=== PATIENT | female | born 1970 | race Caucasian/White ===

== ENCOUNTER 2016-12-05 14:55 | Emergency (ER) | payer BC ==
[2016-12-05 16:27] VITALS: BP 111/60
--- NOTE | 2016-12-05 17:05 | UC ---
Complaint Female HPI - HPI Summary HPI Summary: sudden onset stabbing right flank pain last night while sitting on cough. Doubled her over and she felt like she might vomit. Urinary frequency at that time. Pain was severe for an hour or so, then seemed to move down toward bladder. Today she feels sharp pains in RLQ area, worse with certain movements. No nausea or vomiting. NO fever. No dysuria or inc frequency today, but urine did look cloudy. - History Of Current Complaint Chief Complaint: UCGU Stated Complaint: URINARY COMPLAINT Time Seen by Provider: 12/05/16 16:51 Hx Obtained From: Patient Hx Last Menstrual Period: 11/16/16 Onset/Duration: Sudden Onset, Lasting Hours - 18 Timing: Constant Severity Initially: Severe Severity Currently: Mild Character: Sharp, Colicy Aggravating Factor(s): Movement, Urination Alleviating Factor(s): Nothing Associated Signs And Symptoms: Positive: Nausea. Negative: Fever, Back Pain, Vaginal Bleeding/Discharge, Vaginal Discharge, Vomiting(# Of Episodes =), Genital Swelling, Genital Blisters - Risk Factors Ectopic Risk Factor: Negative Ovarian Torsion Risk Factor: Negative - Allergies/Home Medications Allergies/Adverse Reactions: Allergies Allergy/AdvReac Type Severity Reaction Status Date / Time Latex Allergy Intermediate Rash Verified 08/29/16 09:40 Penicillins Allergy Intermediate Hives Verified 12/05/16 16:22 Cephalexin [From Keflex] AdvReac Intermediate GI Upset Verified 12/05/16 16:22 Prochlorperazine AdvReac Intermediate RLS Verified 12/05/16 16:22 [From Compazine] Home Medications: Home Medications Ibuprofen TAB* [Advil TAB*] 400 mg PO Q6H PRN 12/05/16 [History Confirmed ] PMH/Surg Hx/FS Hx/Imm Hx Endocrine History Of: Denies: Diabetes, Thyroid Disease Cardiovascular History Of: Reports: Cardiac Disorders - mitral valve regurgitation Denies: Hypertension Respiratory History Of: Reports: Asthma Denies: COPD GI/ History Of: Reports: Ulcer - Age 11 - Surgical History Surgical History: Yes Surgery Procedure, Year, and Place: , 2008 - Family History Known Family History: Positive: Hypertension - Social History Occupation: Employed Full-time Lives: With Family Alcohol Use: Occasionally Substance Use Type: None Smoking Status (MU): Never Smoked Tobacco - Immunization History Most Recent Influenza Vaccination: Not the 2016/2016 Season Most Recent Tetanus Shot: WITHIN 5 YEARS Review of Systems Constitutional: Negative Skin: Negative Eyes: Negative ENT: Negative Respiratory: Negative Cardiovascular: Negative Gastrointestinal: Negative Genitourinary: Frequency - last night when pain was severe, Urgency Motor: Negative Neurovascular: Negative Musculoskeletal: Other: - pain right flank area last night, now rlq Neurological: Negative Psychological: Negative All Other Systems Reviewed And Are Negative: Yes Physical Exam Triage Information Reviewed: Yes Appearance: Well-Appearing, No Pain Distress, Well-Nourished Vital Signs: Initial Vital Signs Temp 99.8 F 12/05/16 16:13 Pulse 89 12/05/16 16:13 Resp 16 12/05/16 16:13 BP 111/60 12/05/16 16:13 Pulse Ox 100 12/05/16 16:13 Vital Signs Reviewed: Yes Eye Exam: Normal Neck exam: Normal Respiratory Exam: Normal Cardiovascular Exam: Normal Abdomen Description: Positive: No Organomegaly, Soft, CVA Tenderness (R) - mild , Other: - one area in RLQ moderately tender to deep palpation. No rebound or guarding. Negative: CVA Tenderness (L), Distended, Guarding Musculoskeletal Exam: Normal Neurological Exam: Normal Psychological Exam: Normal Skin Exam: Normal Diagnostics - Laboratory Diagnostic Studies Completed/Ordered: U/A dip 1+ blood, otherwise unremarkable. CT: acute appendicitis Complaint Female Dx - Course Course Of Treatment: d/w [place] [facility] physician, she drove herself there for further eval and treatment - Differential Dx/Diagnosis Differential Diagnosis/HQI/PQRI: Renal Colic, Ureteral Stone, Urinary Tract Infection Provider Diagnoses: appendicitis Discharge - Discharge Plan Condition: Stable Disposition: AGAINST MEDICAL ADVICE Referrals: Wilfred Redd MD [Primary Care Provider] -
--- NOTE | 2016-12-05 18:24 | RAD ---
INDICATION: RIGHT flank . Pressure radiating to the RIGHT groin. Urinary frequency and urgency. RIGHT flank . Pressure radiating to the RIGHT groin. Urinary frequency and urgency. COMPARISON: No relevant prior exams available on the [facility]. TECHNIQUE: Multidetector CT images were obtained from the lung bases to the ischial tuberosities. Evaluation of the viscera is limited without IV contrast. Multiplanar reformation. REPORT: Unremarkable visualized inferior thorax. The liver, gallbladder, pancreas, and spleen are unremarkable. Negative for CT abnormality of the upper GI or small bowel. Retrocecal appendix extends cephalad anterior to the RIGHT iliacus muscle and is significantly inflamed measuring up to 1.2 cm diameter with moderate periappendiceal inflammatory stranding. No extra enteric gas or periappendiceal abscess. No CT abnormality of the colon. Trace free fluid in the RIGHT paracolic gutter. Negative for free air. Normal adrenal glands. Negative for urolithiasis or hydronephrosis. Unremarkable urinary bladder. IUD in place in the uterus. Unremarkable adnexal regions. Negative for lymphadenopathy. Normal diameter abdominal aorta and iliac arteries. Physiologic distention of the IVC. Negative for suspicious osseous lesions. IMPRESSION: Acute appendicitis. Negative for periappendiceal abscess.
== END 2016-12-05 18:48 | disposition left against medical advice (07) ==
LOC: UCCORT 14:55
DX: K35.80 Unspecified acute appendicitis (principal); Z88.1 Allergy status to other antibiotic agents; Z88.0 Allergy status to penicillin; Z88.2 Allergy status to sulfonamides
CPT/HCPCS: 74176; 99213; G0463

== ENCOUNTER 2017-12-15 14:52 | Emergency (ER) | payer BC ==
[2017-12-15 15:17] VITALS: BP 109/70
--- NOTE | 2017-12-15 15:50 | UC ---
FLU HPI - HPI Summary HPI Summary: 2 DAYS OF NASAL IRRITATION AND SNEEZING. TODAY DEVELOPED "FOGGY HEAD", CHILLS, FATIGUE AND SUBJECTIVE FEVER. FEELS BETTER IN THE FRESH AIR. CALLED PCP WHO RECOMMENDED SHE COME HERE FOR FLU TESTING. - History of Current Complaint Chief Complaint: UCGeneralIllness Stated Complaint: FLU LIKE SYMPTOMS Time Seen by Provider: 12/15/17 15:37 Hx Obtained From: Patient Hx Last Menstrual Period: 11/16/16 Onset/Duration: Gradual Onset, Lasting Days, Still Present Severity Currently: Moderate Severity Initially: Moderate Pain Intensity: 0 Pain Scale Used: 0-10 Numeric Associated Signs & Symptoms: Positive: Fever, Myalgia, Nasal Congestion - Allergy/Home Medications Allergies/Adverse Reactions: Allergies Allergy/AdvReac Type Severity Reaction Status Date / Time Latex Allergy Intermediate Rash Verified 12/15/17 15:09 Penicillins Allergy Intermediate Hives Verified 12/15/17 15:09 Cephalexin [From Keflex] AdvReac Intermediate GI Upset Verified 12/15/17 15:09 Prochlorperazine AdvReac Intermediate RLS Verified 12/15/17 15:09 [From Compazine] PMH/Surg Hx/FS Hx/Imm Hx Other Cardiovascular History: MITRAL VALVE REGURGITATION Respiratory History: Asthma GI/ History: Ulcer - Surgical History Surgical History: Yes Surgery Procedure, Year, and Place: , 2007. Appendectomy 2016 - Family History Known Family History: Positive: Hypertension - Social History Alcohol Use: Occasionally Substance Use Type: None Smoking Status (MU): Never Smoked Tobacco - Immunization History Most Recent Influenza Vaccination: Not the 2016/2016 Season Most Recent Tetanus Shot: WITHIN 5 YEARS Review of Systems Constitutional: Fever, Chills, Fatigue ENT: Nasal Discharge Cardiovascular: Negative Gastrointestinal: Nausea Musculoskeletal: Myalgia All Other Systems Reviewed And Are Negative: Yes Physical Exam Triage Information Reviewed: Yes Appearance: Well-Appearing, No Pain Distress, Well-Nourished Vital Signs: Initial Vital Signs Temp 98.5 F 12/15/17 15:10 Pulse 85 12/15/17 15:10 Resp 16 12/15/17 15:10 BP 109/70 12/15/17 15:10 Pulse Ox 99 12/15/17 15:10 Vital Signs Reviewed: Yes Eyes: Positive: Conjunctiva Clear ENT: Positive: Hearing grossly normal, Pharynx normal, TMs normal Neck: Positive: Supple, Nontender, No Lymphadenopathy Respiratory Exam: Normal Cardiovascular Exam: Normal Abdomen Description: Positive: Soft Musculoskeletal: Positive: No Edema Neurological: Positive: Alert Psychological: Positive: Age Appropriate Behavior Skin: Negative: rashes Diagnostics - Laboratory Diagnostic Studies Completed/Ordered: FLU SWAB NEGATIVE Flu Course/Dx - Differential Dx/Diagnosis Provider Diagnoses: ACUTE VIRAL SYNDROME Discharge - Discharge Plan Condition: Stable Disposition: HOME Patient Education Materials: Viral Syndrome (ED) Referrals: Wilfred Redd MD [Primary Care Provider] - If Needed Additional Instructions: FLU SWAB NEGATIVE. YOUR SYMPTOMS ARE LIKELY VIRALLY MEDIATED AND SHOULD RESOLVE ON THEIR OWN WITH TIME. REST, HYDRATE, OTC MEDS NEEDED. SEEK FOLLOW-UP IF YOU ARE NOT IMPROVING OVER THE NEXT 1-2 WEEKS.
== END 2017-12-15 16:43 | disposition home or self-care (01) ==
LOC: UCCORT 14:52
DX: B34.9 Viral infection, unspecified (principal); I34.0 Nonrheumatic mitral (valve) insufficiency; J45.909 Unspecified asthma, uncomplicated; Z88.0 Allergy status to penicillin
CPT/HCPCS: 87502; 99211; G0463

== ENCOUNTER 2018-01-03 08:29 | Emergency (ER) | payer BC ==
[2018-01-03 09:47] VITALS: BP 109/70
--- NOTE | 2018-01-03 10:25 | RAD ---
INDICATION: Chest and trunk pain, possible pneumonia. COMPARISON: Comparison is made with a prior study from August 22, 2015. TECHNIQUE: Dual-energy PA and lateral views of the chest were obtained. FINDINGS: The heart is within normal limits in size. Mediastinal and hilar contours appear within normal limits. The lungs are clear. No pleural effusion is present. IMPRESSION: NO EVIDENCE FOR ACTIVE CARDIOPULMONARY DISEASE.
--- NOTE | 2018-01-03 10:31 | UC ---
Cardiac HPI - HPI Summary HPI Summary: Right lateral chest pain toward the right axilla that worsens with deep breaths. She has factor V leiden carrier status but has never had any complictions from it. No personal or FH of blood clots. She denies sob, calf pain or swelling. No cough or fever. - History of Current Complaint Chief Complaint: UCBackPain Stated Complaint: RIGHT UPPER BACK PAIN Time Seen by Provider: 01/03/18 09:48 Hx Last Menstrual Period: 01/01/18 Pain Intensity: 5 - Risk Factors Pulmonary Embolism Risk Factors: Negative Cardiac Risk Factors: Negative Atrial Fibrillation: Negative - Allergy/Home Medications Allergies/Adverse Reactions: Allergies Allergy/AdvReac Type Severity Reaction Status Date / Time cephalexin [From Keflex] Allergy Hives Verified 01/03/18 09:40 latex Allergy Rash Verified 01/03/18 09:40 mold Allergy Anaphylatic Verified 01/03/18 09:40 Shock mushroom Allergy Anaphylatic Verified 01/03/18 09:40 Shock Penicillins Allergy Hives Verified 01/03/18 09:40 prochlorperazine Allergy RLS Verified 01/03/18 09:40 [From Compazine] PMH/Surg Hx/FS Hx/Imm Hx Previously Healthy: Yes - Surgical History Surgical History: Yes Surgery Procedure, Year, and Place: , 2007. Appendectomy 2016 - Family History Known Family History: Positive: Hypertension - Social History Alcohol Use: Occasionally Substance Use Type: None Smoking Status (MU): Never Smoked Tobacco - Immunization History Most Recent Influenza Vaccination: Not the 2016/2016 Season Most Recent Tetanus Shot: WITHIN 5 YEARS Review of Systems Cardiovascular: Chest Pain Genitourinary: Negative - NO urinary symptoms. All Other Systems Reviewed And Are Negative: Yes Physical Exam Triage Information Reviewed: Yes Appearance: Well-Appearing, No Pain Distress, Well-Nourished Vital Signs: Initial Vital Signs Temp 97.8 F 01/03/18 09:42 Pulse 75 01/03/18 09:42 Resp 16 01/03/18 09:42 BP 109/70 01/03/18 09:42 Pulse Ox 100 01/03/18 09:42 Vital Signs Reviewed: Yes Eyes: Positive: Conjunctiva Clear ENT: Positive: Pharynx normal, TMs normal, Uvula midline. Negative: Tonsillar swelling, Tonsillar exudate, Trismus, Muffled voice, Hoarse voice, Dental tenderness, Sinus tenderness Neck: Positive: Supple, Nontender, No Lymphadenopathy Respiratory Exam: Other - right lateral chest tendeness in the are of the inferior lateral scapula. Respiratory: Positive: Lungs clear, Normal breath sounds, No respiratory distress, No accessory muscle use. Negative: Respiratory distress, Decreased breath sounds, Accessory muscle use, Crackles, Rhonchi, Stridor, Wheezing Cardiovascular: Positive: RRR, No Murmur, Pulses Normal Abdomen Description: Negative: Distended, Guarding Musculoskeletal: Positive: ROM Intact, No Edema, Other: - Neg homans idris. NO calf tenderness. Neurological: Positive: Alert, Muscle Tone Normal. Negative: Fatigued Psychological: Positive: Age Appropriate Behavior Skin: Negative: rashes Diagnostics - Radiology No standard instances Xray Interpretation: No Acute Changes Radiology Interpretation Completed By: ED Physician - Assessment/Plan Course Of Treatment: Mild right pleuritic scapular pain without any worrisome features for DVT or PE. She aggrees to go to ED for any worsening or new symptoms. No tachycardia or sob. - Clinical Impression Provider Diagnoses: right chest wall pain. Discharge - Discharge Plan Condition: Good Disposition: HOME Patient Education Materials: Chest Wall Pain (ED) Referrals: Wilfred Redd MD [Primary Care Provider] - Additional Instructions: Go to ED for sob or worsening pain.
== END 2018-01-03 10:33 | disposition home or self-care (01) ==
LOC: UCCORT 08:29
DX: R07.89 Other chest pain (principal)
CPT/HCPCS: 71046; 99211; G0463

== ENCOUNTER 2018-07-19 14:49 | Emergency (ER) | payer BC, OTHER ==
[2018-07-19 15:08] VITALS: BP 108/67
--- NOTE | 2018-07-19 15:39 | UC ---
Throat Pain/Nasal Lio HPI - HPI Summary HPI Summary: one week hx of malaise, with initial fever. Has persistent headache and facial sinus pain, with purulent drainage with nasal rinses. Using ibuprofen daily. No vertigo, feels light-headed. Concerned because of upcoming camping trip, and personal hx of asthma triggered by URI's and sinus infections. Stopped antihistamines. 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 - History of Current Complaint Chief Complaint: UCGeneralIllness Stated Complaint: SINUSES,HEADACHE Time Seen by Provider: 07/19/18 15:26 Hx Obtained From: Patient Hx Last Menstrual Period: 07/16/18 Onset/Duration: Gradual Onset, Lasting Days - 7 Severity: Moderate Pain Intensity: 5 Cough: None Associated Signs & Symptoms: Positive: Sinus Discomfort, Nasal Discharge, Fever Related History: Seasonal Allergies - Allergies/Home Medications Allergies/Adverse Reactions: Allergies Allergy/AdvReac Type Severity Reaction Status Date / Time cephalexin [From Keflex] Allergy Hives Verified 07/19/18 14:59 latex Allergy Rash Verified 07/19/18 14:59 mold Allergy Anaphylatic Verified 07/19/18 14:59 Shock mushroom Allergy Anaphylatic Verified 07/19/18 14:59 Shock Penicillins Allergy Hives Verified 07/19/18 14:59 prochlorperazine Allergy RLS Verified 07/19/18 14:59 [From Compazine] PMH/Surg Hx/FS Hx/Imm Hx Cardiovascular History: Other - hx of venous stasis with past treatment of varicose veins. Other Cardiovascular History: hx of venous insufficiency and past hx of dependency edema Respiratory History: Asthma - Surgical History Surgical History: Yes Surgery Procedure, Year, and Place: , 2007. Appendectomy 2017 - Family History Known Family History: Positive: Cardiac Disease, Hypertension, Diabetes - Social History Occupation: Employed Full-time Alcohol Use: Occasionally Substance Use Type: None Smoking Status (MU): Never Smoked Tobacco - Immunization History Most Recent Influenza Vaccination: Not the 2016/2017 Season Most Recent Tetanus Shot: UTD Review of Systems Constitutional: Fever, Fatigue Skin: Negative Eyes: Negative ENT: Nasal Discharge, Sinus Congestion Respiratory: Other - history of asthma, with exacerbations about once yearly. Uses prednisone about once yearly, has been admitted in the past for asthma. Cardiovascular: Negative Gastrointestinal: Negative Genitourinary: Negative Motor: Negative Neurovascular: Negative Musculoskeletal: Negative Neurological: Headache Psychological: Anxious Is Patient Immunocompromised?: No All Other Systems Reviewed And Are Negative: Yes Physical Exam Triage Information Reviewed: Yes Appearance: Ill-Appearing - looks mildly unwell Vital Signs: Initial Vital Signs Temp 98.3 F 07/19/18 15:00 Pulse 79 07/19/18 15:00 Resp 16 07/19/18 15:00 BP 108/67 07/19/18 15:00 Pulse Ox 100 07/19/18 15:00 Eye Exam: Normal ENT: Positive: Pharynx normal, TMs normal, Sinus tenderness - maxillary Dental Exam: Normal Neck: Positive: Supple, Nontender, No Lymphadenopathy Respiratory: Positive: Lungs clear, Normal breath sounds Cardiovascular: Positive: RRR, No Murmur Abdomen Description: Positive: Nontender, No Organomegaly, Soft Musculoskeletal: Positive: Edema @ - bilateral feet, 1+ pitting of the feet. Skin Exam: Other - a number of bites on her lower limbs. Throat Pain/Nasal Course/Dx - Course Course Of Treatment: antihistamines. Will give antibiotic and steroid to keep on hold while camping. - Differential Dx/Diagnosis Differential Diagnosis/HQI/PQRI: Pharyngitis, Sinusitis, URI Provider Diagnoses: bilateral maxillary sinusitis. Discharge - Sign-Out/Discharge Documenting (check all that apply): Patient Departure All imaging exams completed and their final reports reviewed: No Studies - Discharge Plan Condition: Stable Disposition: HOME Prescriptions: Fluconazole [Fluconazole 150 mg tab] 150 mg PO ONCE #1 tab predniSONE [Prednisone 20 MG TAB] 2 tab PO DAILY #10 tablet Sulfamethox/Trimethoprim DS* [Bactrim DS 800/160 TAB*] 1 tab PO BID #14 tab Patient Education Materials: Sinusitis (ED) Referrals: Wilfred Redd MD [Primary Care Provider] - Additional Instructions: At this time, continue use of oral antihistamine and measures to control congestion and allergies. Because of upcoming travel, you have a course of bactrim to begin if you have persistent sinus pressure, fever, or develop cough. It is reasonable to wait a day or 2 before starting this. You have a reserve course of prednisone in case of asthma exacerbation. You have a reserve dose of fluconazole in case of yeast vaginitis. - Billing Disposition and Condition Condition: STABLE Disposition: Home
== END 2018-07-19 16:07 | disposition home or self-care (01) ==
LOC: UCCORT 14:49
DX: J32.0 Chronic maxillary sinusitis (principal); Z88.0 Allergy status to penicillin; Z88.1 Allergy status to other antibiotic agents; Z88.8 Allergy status to other drugs, medicaments and biological substances
CPT/HCPCS: 99212; G0463

== ENCOUNTER 2019-01-25 11:48 | Emergency (ER) | payer OTHER ==
--- OUTSIDE RECORDS SUMMARY | 2019-01-25 11:59 | XMS REPORT | Continuity of Care Document ---
:1970 External Reference #:[id number] Author Name Melissa Cunningham M.D. Address [address] [place] [address] Care Team Providers Name Role Phone Adi Redd MD Care Team Information Supervisor Rose Grading Unavailable Payers Date Identification Numbers Payment Provider Subscriber Effective: 2018 Policy Number: [id number] Abdulaziz Hanley PayID: [id number] [address] [place] [address] Expires: 2018 Policy Number: [id number] [place] Plan Claims Ilsa Hanley PayID: [id number] [address] [place] [address] Advance Directives Description No Information Available Problems Date Description Provider Status Onset: 04/09/2013 Mitral valve disorder Adi Redd MD Active Onset: 04/09/2013 Conductive hearing loss of combined sites Adi Redd MD Active Onset: 04/09/2013 Extrinsic asthma without status asthmaticus Adi Redd MD Active Onset: 01/14/2014 Disorder of function of stomach Adi Redd MD Active Onset: 02/24/2014 Acute sinusitis Adi Redd MD Active Onset: 05/02/2016 Conductive hearing loss, bilateral Adi Redd MD Active Family History Date Family Member(s) Observation Comments General Dementia General Diabetes Mellitus, II General Cerebrovascular Accident (CVA) General Hypertension General Ovarian Cancer General Deep Vein Thrombosis Father Multiple Sclerosis (MS) Father Knee replacement Father Factor V carrier Mother Asthma Mother Lupus Mother Hypertension Mother Diabetes Mellitus, II Mother Breast Carcinoma Social History Type Date Description Comments Sex Unknown Marital Status Has been 2 times Lives With Spouse Lives With Children Pets 1 cat Pets 1 dog Hand Dominance Right-Handed ETOH Use Occasionally consumes alcohol Tobacco Use Start: Unknown Patient has never smoked Smoking Status Reviewed: 05/25/17 Patient has never smoked Allergies, Adverse Reactions, Alerts Date Description Reaction Status Severity Comments 04/09/2013 Penicillin Active 04/09/2013 Keflex Active Medications Medication Date Status Form Strength Qnty SIG Indications Ordering Provider Azithromycin 12/31 Active Tablets 250mg 6tabs 2 by J20.9 mouth Octavio, today, 1 M.D. by mouth day 2 thru 5 Prednisone 12/31 Active Tablets 5mg 30tab 1 by 0.9 s mouth Octavio, twice a M.D. day for one week and then 5 mg every day x 1 week Work Note 12/31 Active The above J20.9 is Octavio, excused M.D. from work 01/01/2019 due to illness Diflucan 01/11 Active Tablets 100mg 3tabs 1 every day Liz Cunningham Proair HFA 02/10 Active Aerosol 108(90Bas 8.500 2 puffs 4 e) gm x daily Octavio, mcg/Act M.DNeto Nasonex 02/24 Active Suspension 50mcg/Act 17gm 1 spray q nostril MD Ivania daily Albuterol Sulfate 04/09 Active Nebulizer (2.5mg/3M 60uni right ear L) 0.083% ts robby Redd MD times a day . Azithromycin 01/11 Hx Tablets 250mg 6tabs 2 by J01.90 john Redd MD - today, 1 12/31 by mouth day 2 thru 5 Out Of Work 01/11 Hx date to Dae return MD Ivania - will be 12/3101/13/18 Fluconazole 06/21 Hx Tablets 150mg 2tabs 1 by mouth Octavio, - every day M.D. 01/11 Ciprodex 06/06 Hx Suspension 0.3-0.1% 7.500 2 gtts as H60.319 Rigoberto Sheryl /2016 ml Quid X 7D MD Octavio - 06/15 Doxycycline 06/06 Hx Capsules 100mg 14cap 1 by J20.9 Rigoberto FNeto Hyclate /2016 s mouth MD Octavio - twice a Coditussin ac 06/06 Hx Liquid 200-10mg/ 473ml 10 ml po H60.319 Rigoberto Saucedo 5ML qhs MD Octavio - 06/15 Benzonatate 06/05 Hx Capsules 200mg 30cap take 1 s capsule Octavio, - by mouth M.D. 06/15 twice a day if needed for cough Azithromycin 05/25 Hx Tablets 250mg 6tabs 2 by J01.90 Melissa mouth Octavio, - today, 1 M.D. 06/06 by mouth day 2 thru 5 Fluconazole 05/25 Hx Tablets 150mg 2tabs 1 by [email or web address] Adi mouth MD Ivania - every day 01/11 Azithromycin 03/01 Hx Tablets 250mg 6tabs 2 by J20.9 Melissa mouth Octavio, - today, 1 M.D. 05/25 by mouth day 2 thru 5 Azithromycin 01/16 Hx Tablets 250mg 6tabs 2 by J11.00 Rigoberto Saucedo mouth MD Octavio - today, 1 03/01 by mouth day 2 thru 5 Arnoldo-Polycin HC 03/23 Hx Ointment 1% 3.500 apply to gm eye three RingMD - times a Amoxicillin/Clavul 10/27 Hx Tablets 500-125mg 20tab 1 by [email or web address] Melissa clay s mouth Octavio, - twice a M.D. Diflucan 10/27 Hx Tablets 150mg 2tabs 1 by [email or web address] Melissa mouth Octavio, - every day M.D. 03/23 Azithromycin 10/27 Hx Tablets 250mg 6tabs 2 by [email or web address] Melissa mouth Octavio, - today, 1 M.D. 03/23 by mouth day 2 thru 5 Hydrochlorothiazid 10/19 Hx Capsules 12.5mg 14cap 1 by Adi bhavin Redd MD - every day 03/23 Azithromycin 02/26 Hx Tablets 250mg 6tabs 2 by Adi john Redd MD - today, 1 10/19 by mouth day 2 thru 5 Levofloxacin 02/24 Hx Tablets 500mg 10tab tab 1 po Dae s q canelo Redd MD - 03/24 Pantoprazole 01/[address] 40mg 60tab 1 po qd Elyn s RingMD - 10/19 Sucralfate 01/14 Hx Tablets 1gm 240ta dissolve bs in 30mg MD Ivania - water and 10/19 drink times daily Prednisone 12/25 Hx Tablets 10mg 25tab 2 po qd 493.00 s for 1 Octavio - week then M.DNeto 01/14 1 po q /2013 day for 1 week then stop Ciprofloxacin ER 12/25 Hx Tablets ER 500mg 10tab 1 po qd 493.00 24HR s Saroj Cunningham M.D. 01/14 Fluconazole 12/25 Hx Tablets 150mg 2tabs 1 po qd 493.00 Saroj Cunningham M.D. 01/14 Work Note 12/25 Hx The above 493. is Octavio, - excused M.DNeto 10/19 from 12/25- 014 Cipro 11/08 Hx Tablets 500mg 20tab 1 po bid s Ring, - 11/29 Diflucan 11/08 Hx Tablets 150mg 3tabs 1 po qd Ring, - 11/29 Ventolin HFA 04/09 Hx Aerosol 108(90Bas 3unit 2 puff e) s qid prn Octavio, - mcg/Act MChristian 02/10 Immunizations Description No Information Available Vital Signs Date Vital Result Comment 12/31/2018 11:03am BP Systolic 112 mmHg BP Diastolic 82 mmHg Heart Rate 100 /min Body Temperature 98.5 F Height 62 inches 5'2" Weight 150.00 lb BMI (Body Mass Index) 27.4 kg/m2 O2 % BldC Oximetry 98 % 01/11/2018 9:56am BP Systolic 102 mmHg BP Diastolic 64 mmHg Heart Rate 81 /min Body Temperature 98.0 F Respiratory Rate 18 /min O2 % BldC Oximetry 98 % 06/15/2017 2:01pm BP Systolic 108 mmHg BP Diastolic 60 mmHg Height 62 inches 5'2" Weight 145.00 lb BMI (Body Mass Index) 26.5 kg/m2 06/06/2017 1:49pm BP Systolic 110 mmHg BP Diastolic 60 mmHg Body Temperature 97.9 F 05/25/2017 2:26pm BP Systolic 110 mmHg BP Diastolic 60 mmHg Body Temperature 98.3 F 03/01/2017 3:37pm BP Systolic 110 mmHg BP Diastolic 60 mmHg Body Temperature 96.5 F 01/18/2017 2:51pm BP Systolic 110 mmHg BP Diastolic 60 mmHg 01/16/2017 2:26pm BP Systolic 110 mmHg BP Diastolic 70 mmHg Body Temperature 99.0 F 08/08/2016 2:44pm BP Systolic 106 mmHg BP Diastolic 64 mmHg Height 61 inches 5'1" Weight 139.00 lb BMI (Body Mass Index) 26.3 kg/m2 05/02/2016 1:28pm BP Systolic 100 mmHg BP Diastolic 60 mmHg Height 61 inches 5'1" Weight 138.00 lb BMI (Body Mass Index) 26.1 kg/m2 03/23/2016 9:58am BP Systolic 100 mmHg BP Diastolic 60 mmHg 10/27/2015 1:20pm BP Systolic 110 mmHg BP Diastolic 70 mmHg Body Temperature 98.2 F 10/19/2015 4:14pm BP Systolic 110 mmHg BP Diastolic 70 mmHg Height 62 inches 5'2" Weight 134.00 lb BMI (Body Mass Index) 24.5 kg/m2 02/26/2015 11:47am BP Systolic 110 mmHg BP Diastolic 60 mmHg Height 62 inches 5'2" Weight 128.00 lb BMI (Body Mass Index) 23.4 kg/m2 03/24/2014 4:08pm BP Systolic 102 mmHg BP Diastolic 70 mmHg 02/24/2014 4:22pm BP Systolic 108 mmHg BP Diastolic 60 mmHg 01/14/2014 12:33pm BP Systolic 112 mmHg BP Diastolic 58 mmHg 12/25/2013 1:31pm BP Systolic 130 mmHg BP Diastolic 68 mmHg Body Temperature 98.0 F 11/29/2013 1:46pm BP Systolic 110 mmHg BP Diastolic 60 mmHg Height 62 inches 5'2" 11/08/2013 2:00pm BP Systolic 96 mmHg BP Diastolic 62 mmHg Height 62 inches 5'2" Weight 121.00 lb BMI (Body Mass Index) 22.1 kg/m2 04/09/2013 11:09am BP Systolic 100 mmHg BP Diastolic 60 mmHg Height 62 inches 5'2" Weight 123.00 lb BMI (Body Mass Index) 22.5 kg/m2 Results Test Date Facility Test Result H/L Range Note CBS 04/09/2018 [facility] White Blood 7.1 K/uL N 3.1-10.7 1 W/Automated [address] [place] [place] [address] [phone] Red Blood Count 4.39 M/uL N 3.90-5.40 Hemoglobin 14.1 gm/dL N 11.6-15.8 Hematocrit 42.5 % N 36.0-46.1 Mean Cell Volume 96.8 fl N 80.9-99.0 Mean Corpuscular HGB 32.1 pg N 25.9-32.7 Mean Corpuscular HGB Conc 33.2 g/dL N 30.8-34.3 Platelet Count 239 K/uL N 155-360 Red Cell Distri Width SD 45.2 fl N 3-47 Red Cell Distri Width %CV 12.9 % N 11.7-14.4 Mean Platelet Volume 12.4 fL N 8.9-12.4 Neut% 65.7 % N 40.4-72.8 Lymph % 22.3 % N 20.0-42.0 [place] % 7.8 % N 4.3-13.2 Eo% 3.6 % N 0.0-6.6 Bas% 0.6 % N 0.0-1.1 Neut# 4.69 K/uL N 1.8-7.0 Lymph # 1.59 K/uL N 1.0-4.0 [place] # 0.56 K/uL N 0.3-0.9 Eos # 0.26 K/uL N 0.0-0.5 Baso # 0.04 K/uL N 0.0-0.1 Basic Metabolic Panel 04/09/2018 [facility] Glucose 93 mg/dL N 74-[address] [place] [address] [phone] BUN 18 mg/dL N 7-18 Creatinine 0.9 mg/dL N 0.6-1.3 Glom Filtration Rate, Estimate >60 mL/min >60 If >60 mL/min >60 2 BUN/Creat 20.0 ratio Sodium 136 mmol/L N 136-145 Potassium 3.9 mmol/L N 3.5-5.1 Chloride 102 mmol/L N 98-107 Carbon Dioxide 26 mmol/L N 21-32 Anion Gap 8 mEq/L N 8-16 Calcium 8.9 mg/dL N 8.5-10.1 Comprehensive 01/02/2018 [facility] Glucose 171 mg/ dL High 74-106 3 Metabolic Panel [address] [place] [address] [phone] BUN 13 mg/dL N 7-18 Creatinine 1.0 mg/dL N 0.6-1.3 Glom Filtration Rate, Estimate >60 mL/min >60 If >60 mL/min >60 4 BUN/Creat 13.0 ratio Sodium 135 mmol/L Low 136-145 Potassium 3.6 mmol/L N 3.5-5.1 Chloride 105 mmol/L N 98-107 Carbon Dioxide 22 mmol/L N 21-32 Anion Gap 8 mEq/L N 8-16 Calcium 8.7 mg/dL N 8.5-10.1 Total Protein 7.6 g/dL N 6.4-8.2 Albumin 3.8 g/dL N 3.4-5.0 Globulin 3.8 g/dL N 1.9-4.3 Alb/Glob 1.0 ratio Bilirubin,Total 0.4 mg/dL N 0.2-1.0 Sgot/Ast 16 U/L N 15-37 SGPT/Alt 22 U/L N 12-78 Alkaline Phosphatase 51 U/L N 45-117 Laboratory test 01/02/2018 [facility] Thyroid Stim 1.85 uIU/mL N 0.30-4.[address] [place] [address] [phone] C-Reactive Protein,Quant < 2.9 mg/L <3.0 CBS W/Automated 01/02/2018 [facility] White Blood 7.5 K/uL N 3.1-10.[address] [place] [address] [phone] Red Blood Count 4.54 M/uL N 3.90-5.40 Hemoglobin 14.3 gm/dL N 11.6-15.8 Hematocrit 42.7 % N 36.0-46.1 Mean Cell Volume 94.1 fl N 80.9-99.0 Mean Corpuscular HGB 31.5 pg N 25.9-32.7 Mean Corpuscular HGB Conc 33.5 g/dL N 30.8-34.3 Platelet Count 246 K/uL N 155-360 Red Cell Distri Width SD 43.6 fl N 3-47 Red Cell Distri Width %CV 13.0 % N 11.7-14.4 Mean Platelet Volume 12.8 fL High 8.9-12.4 Neut% 60.4 % N 40.4-72.8 Lymph % 26.9 % N 20.0-42.0 [place] % 8.1 % N 4.3-13.2 Eo% 4.1 % N 0.0-6.6 Bas% 0.5 % N 0.0-1.1 Neut# 4.55 K/uL N 1.8-7.0 Lymph # 2.03 K/uL N 1.0-4.0 [place] # 0.61 K/uL N 0.3-0.9 Eos # 0.31 K/uL N 0.0-0.5 Baso # 0.04 K/uL N 0.0-0.1 Laboratory test 01/02/2018 [facility] Sedimentation 7 mm/hr N 0-20 [address] [place] [address] [phone] Laboratory test 01/02/2018 [facility] Antinuclear Negative . [address] Antibodies, [place] [address] [phone] Rapid Influenza 12/15/2017 [employer] Influenza A NEGATIVE Negative 7 A & B Molecular [address] [place] [address] [phone] Influenza B Molecular NEGATIVE Negative CBS W/Automated 10/04/2017 [facility] White Blood 6.2 K/uL N 3.1-10.7 [address] [place] [address] [phone] Red Blood Count 4.49 M/uL N 3.90-5.40 Hemoglobin 14.6 gm/dL N 11.6-15.8 Hematocrit 42.5 % N 36.0-46.1 Mean Cell Volume 94.7 fl N 80.9-99.0 Mean Corpuscular HGB 32.5 pg N 25.9-32.7 Mean Corpuscular HGB Conc 34.4 g/dL High 30.8-34.3 Platelet Count 283 K/uL N 150-400 Red Cell Distri Width SD 42.9 fl N 3-47 Red Cell Distri Width %CV 12.7 % N 11.7-14.4 Mean Platelet Volume 11.8 fL N 8.9-12.4 Neut% 67.4 % N 40.4-72.8 Lymph % 18.9 % Low 20.0-42.0 [place] % 11.6 % N 4.3-13.2 Eo% 1.0 % N 0.0-6.6 Bas% 1.1 % N 0.0-1.1 Neut# 4.20 K/uL N 1.8-7.0 Lymph # 1.18 K/uL N 1.0-4.0 [place] # 0.72 K/uL N 0.3-0.9 Eos # 0.06 K/uL N 0.0-0.5 Baso # 0.07 K/uL N 0.0-0.1 Comprehensive Metabolic 10/04/2017 [facility] Glucose 91 mg/dL N 74-[address] [place], [place] [address] [phone] BUN 15 mg/dL N 7-18 Creatinine 0.8 mg/dL N 0.6-1.3 Glom Filtration Rate, Estimate >60 mL/min >60 If >60 mL/min >60 9 BUN/Creat 18.7 ratio Sodium 136 mmol/L N 136-145 Potassium 5.2 mmol/L High 3.5-5.1 Chloride 105 mmol/L N 98-107 Carbon Dioxide 23 mmol/L N 21-32 Anion Gap 8 mEq/L N 8-16 Calcium 8.8 mg/dL N 8.5-10.1 Total Protein 8.0 g/dL N 6.4-8.2 Albumin 3.4 g/dL N 3.4-5.0 Globulin 4.6 g/dL High 1.9-4.3 Alb/Glob 0.7 ratio Bilirubin,Total 0.4 mg/dL N 0.2-1.0 Sgot/Ast 55 U/L High 15-37 SGPT/Alt 26 U/L N 12-78 Alkaline Phosphatase 51 U/L N 45-117 Urinalysis With 10/04/2017 [facility] Urine Color YELLOW Yellow Microscopic [address] [place] [address] [phone] Urine Clarity CLEAR Clear Urine Glucose - Dipstick NEGATIVE mg/dL Negative Urine Bilirubin - Dipstick NEGATIVE Negative Urine Ketone NEGATIVE mg/dL Negative Urine Specific [place] 1.010 N 1.010-1.030 Urine Blood MODERATE Abnormal Negative Urine PH 6.5 N 6.5-7.5 Urine Protein - Dipstick NEGATIVE mg/dL Negative Urine Urobilinogen - Dipstick 0.2 E.U./dL N 0.2-1.0 Urine Nitrite - Dipstick NEGATIVE Negative Urine Leuk Esterase TRACE Abnormal Negative Urine RBC 5-10 rbc/hpf High 0-2 Urine WBC 2-5 wbc/hpf 0-7 Urine Epithelial Cells MANY /lpf None Seen 10 Urine Bacteria VERY FEW None Seen Urine Yeast VERY FEW None Seen Source: URINE, CLEAN CAT <SEE NOTE> 11 Laboratory test 07/31/2017 [facility] Troponin-I < 0.015 12, [address] ng/mL [place], [place] [id number] [phone] Basic Metabolic 07/31/2017 [facility] Glucose 95 mg/ dL N 74-[address] [place], [place] [address] [phone] BUN 12 mg/dL N 7-18 Creatinine 0.9 mg/dL N 0.6-1.3 Glom Filtration Rate, Estimate >60 mL/min >60 If >60 mL/min >60 14 BUN/Creat 13.3 ratio Sodium 143 mmol/L N 136-145 Potassium 3.9 mmol/L N 3.5-5.1 Chloride 112 mmol/L High 98-107 Carbon Dioxide 24 mmol/L N 21-32 Anion Gap 7 mEq/L Low 8-16 Calcium 8.0 mg/dL Low 8.5-10.1 CBS W/Automated 07/31/2017 [facility] White Blood 4.7 K/uL N 3.1-10.[address] [place] [address] [phone] Red Blood Count 3.87 M/uL Low 3.90-5.40 Hemoglobin 12.2 gm/dL N 11.6-15.8 Hematocrit 37.7 % N 36.0-46.1 Mean Cell Volume 97.4 fl N 80.9-99.0 Mean Corpuscular HGB 31.5 pg N 25.9-32.7 Mean Corpuscular HGB Conc 32.4 g/dL N 30.8-34.3 Platelet Count 219 K/uL N 150-400 Red Cell Distri Width SD 43.4 fl N 3-47 Red Cell Distri Width %CV 12.4 % N 11.7-14.4 Mean Platelet Volume 12.6 fL High 8.9-12.4 Neut% 44.3 % N 40.4-72.8 Lymph % 42.2 % High 20.0-42.0 [place] % 8.9 % N 4.3-13.2 Eo% 3.8 % N 0.0-6.6 Bas% 0.8 % N 0.0-1.1 Neut# 2.10 K/uL N 1.8-7.0 Lymph # 2.00 K/uL N 1.0-4.0 [place] # 0.42 K/uL N 0.3-0.9 Eos # 0.18 K/uL N 0.0-0.5 Baso # 0.04 K/uL N 0.0-0.1 Laboratory test 07/30/2017 [facility] Troponin-I < 0.015 [address] ng/[place] [address] [phone] Laboratory test 07/30/2017 [facility] Troponin-I < 0.015 [address] ng/[place] [address] [phone] CBS W/Automated 07/30/2017 [facility] White Blood 7.5 K/uL N 3.1-10 [address] Count .7 [place] [address] [phone] Red Blood Count 4.32 M/uL N 3.90-5.40 Hemoglobin 14.1 gm/dL N 11.6-15.8 Hematocrit 41.5 % N 36.0-46.1 Mean Cell Volume 96.1 fl N 80.9-99.0 Mean Corpuscular HGB 32.6 pg N 25.9-32.7 Mean Corpuscular HGB Conc 34.0 g/dL N 30.8-34.3 Platelet Count 245 K/uL N 150-400 Red Cell Distri Width SD 42.4 fl N 3-47 Red Cell Distri Width %CV 12.4 % N 11.7-14.4 Mean Platelet Volume 11.2 fL N 8.9-12.4 Neut% 68.7 % N 40.4-72.8 Lymph % 23.6 % N 20.0-42.0 [place] % 6.1 % N 4.3-13.2 Eo% 0.9 % N 0.0-6.6 Bas% 0.7 % N 0.0-1.1 Neut# 5.14 K/uL N 1.8-7.0 Lymph # 1.77 K/uL N 1.0-4.0 [place] # 0.46 K/uL N 0.3-0.9 Eos # 0.07 K/uL N 0.0-0.5 Baso # 0.05 K/uL N 0.0-0.1 Comprehensive Metabolic 07/30/2017 [facility] Glucose 87 mg/dL N 74-[address] [place], [place] [address] [phone] BUN 12 mg/dL N 7-18 Creatinine 0.9 mg/dL N 0.6-1.3 Glom Filtration Rate, Estimate >60 mL/min >60 If >60 mL/min >60 18 BUN/Creat 13.3 ratio Sodium 142 mmol/L N 136-145 Potassium 3.8 mmol/L N 3.5-5.1 Chloride 109 mmol/L High 98-107 Carbon Dioxide 25 mmol/L N 21-32 Anion Gap 8 mEq/L N 8-16 Calcium 8.8 mg/dL N 8.5-10.1 Total Protein 7.8 g/dL N 6.4-8.2 Albumin 3.8 g/dL N 3.4-5.0 Globulin 4.0 g/dL N 1.9-4.3 Alb/Glob 1.0 ratio Bilirubin,Total 0.5 mg/dL N 0.2-1.0 Sgot/Ast 16 U/L N 15-37 SGPT/Alt 20 U/L N 12-78 Alkaline Phosphatase 58 U/L N 45-117 Laboratory test finding 07/30/2017 [facility] CK 83 U /L N 26-[address] [place] [address] [phone] Troponin-I < 0.015 ng/mL 19 CBS W/Automated 07/13/2017 [facility] White Blood 8.9 K/uL N 3.1-10.7 [address] Count [place], [place] [address] [phone] Red Blood Count 4.36 M/uL N 3.90-5.40 Hemoglobin 14.0 gm/dL N 11.6-15.8 Hematocrit 42.0 % N 36.0-46.1 Mean Cell Volume 96.3 fl N 80.9-99.0 Mean Corpuscular HGB 32.1 pg N 25.9-32.7 Mean Corpuscular HGB Conc 33.3 g/dL N 30.8-34.3 Platelet Count 229 K/uL N 150-400 Red Cell Distri Width SD 43.1 fl N 3-47 Red Cell Distri Width %CV 12.5 % N 11.7-14.4 Mean Platelet Volume 13.1 fL High 8.9-12.4 Neut% 65.7 % N 40.4-72.8 Lymph % 23.6 % N 20.0-42.0 [place] % 8.1 % N 4.3-13.2 Eo% 2.2 % N 0.0-6.6 Bas% 0.4 % N 0.0-1.1 Neut# 5.86 K/uL N 1.8-7.0 Lymph # 2.11 K/uL N 1.0-4.0 [place] # 0.72 K/uL N 0.3-0.9 Eos # 0.20 K/uL N 0.0-0.5 Baso # 0.04 K/uL N 0.0-0.1 Laboratory test 04/28/2017 [facility] Antinuclear Negative . 21, [address] Antibodies, [place] [address] [phone] Anti-Dna Antibody ([place]) 2 IU/mL 0-9 23 Laboratory test 04/28/2017 [facility] Sedimentation Rate 9 mm/hr N 0-20 [address] [place] [address] [phone] CBS W/Automated 04/28/2017 [facility] White Blood Count 7.9 K/uL N 3.1-10.[address] [place] [address] [phone] Red Blood Count 4.55 M/uL N 3.90-5.40 Hemoglobin 14.6 gm/dL N 11.6-15.8 Hematocrit 42.6 % N 36.0-46.1 Mean Cell Volume 93.6 fl N 80.9-99.0 Mean Corpuscular HGB 32.1 pg N 25.9-32.7 Mean Corpuscular HGB Conc 34.3 g/dL N 30.8-34.3 Platelet Count 212 K/uL N 150-400 Red Cell Distri Width SD 43.4 fl N 3-47 Red Cell Distri Width %CV 12.9 % N 11.7-14.4 Mean Platelet Volume 13.0 fL High 8.9-12.4 Neut% 65.3 % N 40.4-72.8 Lymph % 22.7 % N 20.0-42.0 [place] % 8.1 % N 4.3-13.2 Eo% 3.4 % N 0.0-6.6 Bas% 0.5 % N 0.0-1.1 Neut# 5.18 K/uL N 1.8-7.0 Lymph # 1.80 K/uL N 1.0-4.0 [place] # 0.64 K/uL N 0.3-0.9 Eos # 0.27 K/uL N 0.0-0.5 Baso # 0.04 K/uL N 0.0-0.1 Laboratory test 04/28/2017 [facility] Thyroid Stim 1.74 uIU/mL N 0.30-4.[address] [place] [address] [phone] Free T4 1.08 ng/dL N 0.76-1.46 C-Reactive Protein,Quant < 2.9 mg/L <3.0 LDL Cholesterol 04/28/2017 [facility] Cholesterol 173 mg/dL <200 [address] [place] [address] [phone] Triglycerides 77 mg/dL <150 26 HDL Cholesterol 88 mg/dL >40 27 LDL-Cholesterol 70 mg/dL < 100 28 Comprehensive Metabolic 04/28/2017 [facility] Glucose 87 mg/dL N 74-[address] [place] [address] [phone] BUN 14 mg/dL N 7-18 Creatinine 0.9 mg/dL N 0.6-1.3 Glom Filtration Rate, Estimate >60 mL/min >60 If >60 mL/min >60 29 BUN/Creat 15.5 ratio Sodium 138 mmol/L N 136-145 Potassium 4.2 mmol/L N 3.5-5.1 Chloride 108 mmol/L High 98-107 Carbon Dioxide 21 mmol/L N 21-32 Anion Gap 9 mEq/L N 8-16 Calcium 8.7 mg/dL N 8.5-10.1 Liver Function 04/28/2017 [facility] Total Protein 7.9 g/dL N 6.4-8.[address] [place] [address] [phone] Albumin 3.9 g/dL N 3.4-5.0 Globulin 4.0 g/dL N 1.9-4.3 Alb/Glob 1.0 ratio Bilirubin,Total 0.6 mg/dL N 0.2-1.0 Bilirubin,Direct 0.1 mg/dL N 0.0-0.2 Bilirubin,Indirect 0.5 mg/dL N 0.0-0.9 Sgot/Ast 21 U/L N 15-37 SGPT/Alt 25 U/L N 12-78 Alkaline Phosphatase 47 U/L N 45-117 Ua RFX Micro & 04/28/2017 [facility] Urine Color YELLOW Yellow Culture II [address] [place] [address] [phone] Urine Clarity CLEAR Clear Urine Glucose - Dipstick NEGATIVE mg/dL Negative Urine Bilirubin - Dipstick NEGATIVE Negative Urine Ketone TRACE mg/dL High Negative Urine Specific [place] 1.015 N 1.010-1.030 Urine Blood TRACE Negative Urine PH 6.5 N 6.5-7.5 Urine Protein - Dipstick NEGATIVE mg/dL Negative Urine Urobilinogen - Dipstick 0.2 E.U./dL N 0.2-1.0 Urine Nitrite - Dipstick NEGATIVE Negative Urine Leuk Esterase NEGATIVE Negative Source: URINE, CLEAN CAT <SEE NOTE> 30 Antinuclear 12/19/2016 [facility] Antinuclear Positive . 31, 32 Antibodies, [place] [address] Antibodies, [place], [place] [address] [phone] Speckled Pattern 1:80 N . Note (SEE NOTE) N 33 Antiextractable 12/19/2016 [facility] SM Antibody < 0.2 AI N 0.0-0.9 Nuclear Ag [address] [place], [place] [address] [phone] SHELLF[place] [employer]OWER Antibody <0.2 AI N 0.0-0.9 34 CBS W/Automated 12/06/2016 [facility] White Blood 7.2 K/uL N 3.1-10.7 [address] Count [place], [place] [address] [phone] Red Blood Count 3.89 M/uL Low 3.90-5.40 Hemoglobin 12.3 gm/dL N 11.6-15.8 Hematocrit 38.4 % N 36.0-46.1 Mean Cell Volume 98.7 fl N 80.9-99.0 Mean Corpuscular HGB 31.6 pg N 25.9-32.7 Mean Corpuscular HGB Conc 32.0 g/dL N 30.8-34.3 Platelet Count 189 K/uL N 155-360 Red Cell Distri Width SD 43.2 fl N 3-47 Red Cell Distri Width %CV 12.3 % N 11.7-14.4 Mean Platelet Volume 11.3 fL N 8.9-12.4 Neut% 88.3 % High 40.4-72.8 Lymph % 10.0 % Low 20.0-42.0 [place] % 1.5 % Low 4.3-13.2 Eo% 0.1 % N 0.0-6.6 Bas% 0.1 % N 0.0-1.1 Neut# 6.38 K/uL N 1.8-7.0 Lymph # 0.72 K/uL Low 1.0-4.0 [place] # 0.11 K/uL Low 0.3-0.9 Eos # 0.01 K/uL N 0.0-0.5 Baso # 0.01 K/uL N 0.0-0.1 Basic Metabolic 12/06/2016 [facility] Glucose 125 mg/ dL High 74-[address] [place], [place] [id number] [phone] BUN 10 mg/dL N 7-18 Creatinine 0.7 mg/dL N 0.6-1.3 Glom Filtration Rate, Estimate >60 mL/min N >60 If >60 mL/min N >60 36 BUN/Creat 14.2 ratio N Sodium 141 mmol/L N 136-145 Potassium 4.1 mmol/L N 3.5-5.1 Chloride 112 mmol/L High 98-107 Carbon Dioxide 21 mmol/L N 21-32 Anion Gap 8 mEq/L N 8-16 Calcium 7.7 mg/dL Low 8.5-10.1 CBS W/Automated 12/05/2016 [facility] White Blood 6.9 K/uL N 3.1-10.[address] Count [place], [place] [id number] [phone] Red Blood Count 4.04 M/uL N 3.90-5.40 Hemoglobin 12.7 gm/dL N 11.6-15.8 Hematocrit 39.2 % N 36.0-46.1 Mean Cell Volume 97.0 fl N 80.9-99.0 Mean Corpuscular HGB 31.4 pg N 25.9-32.7 Mean Corpuscular HGB Conc 32.4 g/dL N 30.8-34.3 Platelet Count 173 K/uL N 155-360 Red Cell Distri Width SD 42.2 fl N 3-47 Red Cell Distri Width %CV 12.3 % N 11.7-14.4 Mean Platelet Volume 10.9 fL N 8.9-12.4 Neut% 52.4 % N 40.4-72.8 Lymph % 30.9 % N 20.0-42.0 [place] % 10.3 % N 4.3-13.2 Eo% 5.8 % N 0.0-6.6 Bas% 0.6 % N 0.0-1.1 Neut# 3.61 K/uL N 1.8-7.0 Lymph # 2.13 K/uL N 1.0-4.0 [place] # 0.71 K/uL N 0.3-0.9 Eos # 0.40 K/uL N 0.0-0.5 Baso # 0.04 K/uL N 0.0-0.1 Urine Culture 12/05/2016 [facility] Urine Culture URETHRAL [address] [address] [place] [address] [phone] Quantity 10,000 - 50,000 <SEE NOTE> N 38 Laboratory test 12/05/2016 [facility] NT-proBNP 74.0 pg/mL N <125 [address] [place] [address] [phone] Urinalysis With 12/05/2016 [facility] Urine Color YELLOW N Yellow [address] [place] [address] [phone] Urine Clarity CLEAR N Clear Urine Glucose - Dipstick NEGATIVE mg/dL N Negative Urine Bilirubin - Dipstick NEGATIVE N Negative Urine Ketone NEGATIVE mg/dL N Negative Urine Specific [place] <=1.005 Low 1.010-1.030 Urine Blood TRACE N Negative Urine PH 6.5 N 6.5-7.5 Urine Protein - Dipstick NEGATIVE mg/dL N Negative Urine Urobilinogen - Dipstick 0.2 E.U./dL N 0.2-1.0 Urine Nitrite - Dipstick NEGATIVE N Negative Urine Leuk Esterase SMALL Abnormal Negative Urine RBC NONE SEEN rbc/hpf N 0-2 Urine WBC 0-2 wbc/hpf N 0-7 Urine Epithelial Cells VERY FEW /lpf N None Seen Urine Bacteria VERY FEW N None Seen Source: URINE, CLEAN CAT <SEE NOTE> 41 Aot Request 12/05/2016 [facility] Aot Request Test(s ) added N 42, [address] [place] [address] [phone] Tests to be added: BNP Laboratory 08/29/2016 [facility] Rapid Strep POSITIVE Abnormal Negative 44 test finding [address] [place] [address] [phone] Thyroid Stim 07/28/2016 [facility] Thyroid Stim 1.85 N 0.30-4.[address] Hormone uIU/[place] [address] [phone] Is Patient Fasting? Fasting Free T4 07/28/2016 [facility] Free T4 0.90 ng/dL N 0.76-1.[address] [place] [address] [phone] Is Patient Fasting? Fasting Liver Function 07/28/2016 [facility] Total Protein 7.4 g/dL N 6.4-8.[address] [place] [address] [phone] Albumin 3.6 g/dL N 3.4-5.0 Globulin 3.8 g/dL N 1.9-4.3 Alb/Glob 0.9 ratio N Bilirubin,Total 0.6 mg/dL N 0.2-1.0 Bilirubin,Direct 0.2 mg/dL N 0.0-0.2 Bilirubin,Indirect 0.4 mg/dL N 0.0-0.9 Sgot/Ast 18 U/L N 15-37 SGPT/Alt 23 U/L N 12-78 Alkaline Phosphatase 43 U/L Low 45-117 Is Patient Fasting? Fasting Comprehensive Metabolic 07/28/2016 [facility] Glucose 85 mg/dL N 74-[address] [place] [address] [phone] BUN 15 mg/dL N 7-18 Creatinine 0.8 mg/dL N 0.6-1.3 Glom Filtration Rate, Estimate >60 mL/min N >60 If >60 mL/min N >60 45 BUN/Creat 18.7 ratio N Sodium 138 mmol/L N 136-145 Potassium 4.1 mmol/L N 3.5-5.1 Chloride 107 mmol/L N 98-107 Carbon Dioxide 25 mmol/L N 21-32 Anion Gap 6 mEq/L Low 8-16 Calcium 8.0 mg/dL Low 8.5-10.1 Is Patient Fasting? Fasting LDL Cholesterol 07/28/2016 [facility] Cholesterol 160 mg/dL N <200 [address] [place] [address] [phone] Triglycerides 61 mg/dL N <150 47 HDL Cholesterol 89 mg/dL N >40 48 LDL-Cholesterol 59 mg/dL N < 100 49 Is Patient Fasting? Fasting CBS W/Automated 07/28/2016 [facility] White Blood 5.4 K/uL N 3.1-10.7 [address] [place] [address] [phone] Red Blood Count 4.26 M/uL N 3.90-5.40 Hemoglobin 13.5 gm/dL N 11.6-15.8 Hematocrit 41.5 % N 36.0-46.1 Mean Cell Volume 97.4 fl N 80.9-99.0 Mean Corpuscular HGB 31.7 pg N 25.9-32.7 Mean Corpuscular HGB Conc 32.5 g/dL N 30.8-34.3 Platelet Count 208 K/uL N 155-360 Red Cell Distri Width SD 46.4 fl N 3-47 Red Cell Distri Width %CV 13.4 % N 11.7-14.4 Mean Platelet Volume 13.0 fL High 8.9-12.4 Neut% 55.4 % N 40.4-72.8 Lymph % 29.8 % N 17.0-46.1 [place] % 8.5 % N 4.3-13.2 Eo% 5.7 % N 0.0-6.6 Bas% 0.6 % N 0.0-1.1 Neut# 2.99 K/uL N 1.8-7.0 Lymph # 1.61 K/uL Low 1.8-7.0 [place] # 0.46 K/uL N 0.3-0.9 Eos # 0.31 K/uL N 0.0-0.5 Baso # 0.03 K/uL N 0.0-0.1 Laboratory test 04/25/2016 [facility] T4 5.79 Low 6.09-12.[address] ?g/[place] [address] [phone] Hepatic 04/25/2016 [facility] Direct 0.10 N 0.03-0.18 Function Panel [address] Bilirubin mg/[place] [address] [phone] Indirect Bilirubin 0.4 mg/dL N 0.3-1.0 Lipid Panel 04/25/2016 [facility] Triglycerides 87 mg/dL N [address] [place] [address] [phone] Cholesterol 152 mg/dL N 52 HDL Cholesterol 76.2 mg/dL N 53 LDL Cholesterol 58 mg/dL N 54 CBC W/ Diff & 04/25/2016 [facility] White Blood 6.2 10^3/uL N 3.5-10.[address] [place] [address] [phone] Red Blood Count 4.39 10^6/uL N 4.0-5.4 Hemoglobin 13.8 g/dL N 12.0-16.0 Hematocrit 42 % N 35-47 Mean Corpuscular Volume 95 fL N 80-97 Mean Corpuscular Hemoglobin 32 pg High 27-31 Mean Corpuscular HGB Conc 33 g/dL N 31-36 Red Cell Distribution Width 13 % N 10.5-15 Abs Neutrophils 4.0 10^3/uL N 1.5-7.7 Abs Lymphocytes 1.5 10^3/uL N 1.0-4.8 Abs Monocytes 0.3 10^3/uL N 0-0.8 Abs Eosinophils 0.2 10^3/uL N 0-0.6 Abs Basophils 0.1 10^3/uL N 0-0.2 Abs Nucleated RBC 0 10^3/uL N Granulocyte % 64.8 % N 38-83 Lymphocyte % 24.6 % Low 25-47 Monocyte % 5.2 % N 1-9 Eosinophil % 4.0 % N 0-6 Basophil % 1.4 % N 0-2 Nucleated Red Blood Cells % 0.1 N Platelet Count 208 10^3/uL N 150-450 Mean Platelet Volume 11 um3 High 7.4-10.4 CMP W/O Egfr 04/25/2016 [facility] Sodium 134 mmol/L N [phone] [place] [address] [phone] Potassium 4.1 mmol/L N 3.5-5.0 Chloride 101 mmol/L N 101-111 Co2 Carbon Dioxide 28 mmol/L N 22-32 Anion Gap 5 mmol/L N 2-11 Glucose 89 mg/dL N 70-100 Blood Urea Nitrogen 14 mg/dL N 6-24 Creatinine 0.79 mg/dL N 0.51-0.95 BUN/Creatinine Ratio 17.7 N 8-20 Calcium 9.0 mg/dL N 8.6-10.3 Total Protein 6.8 g/dL N 6.4-8.9 Albumin 4.1 g/dL N 3.2-5.2 Globulin 2.7 g/dL N 2-4 Albumin/Globulin Ratio 1.5 N 1-3 Total Bilirubin 0.50 mg/dL N 0.2-1.0 Alkaline Phosphatase 34 U/L N 34-104 Alt 13 U/L N 7-52 Ast 21 U/L N 13-39 Egfr Non- 78.0 N >60 Egfr 100.3 N >60 55 General Health 04/25/2016 [facility] TSH (Thyroid 1.14 ?IU/mL N 0.34-5.[address] Stim [place]) [place] [address] [phone] Comp Metabolic 01/07/2016 [facility] Sodium 135 mmol/L N 133- [address] [place] [address] [phone] Potassium 3.9 mmol/L N 3.5-5.0 Chloride 103 mmol/L N 101-111 Co2 Carbon Dioxide 27 mmol/L N 22-32 Anion Gap 5 mmol/L N 2-11 Glucose 107 mg/dL High 70-100 Blood Urea Nitrogen 14 mg/dL N 6-24 Creatinine 0.89 mg/dL N 0.51-0.95 BUN/Creatinine Ratio 15.7 N 8-20 Calcium 9.3 mg/dL N 8.6-10.3 Total Protein 6.6 g/dL N 6.4-8.9 Albumin 4.2 g/dL N 3.2-5.2 Globulin 2.4 g/dL N 2-4 Albumin/Globulin Ratio 1.8 N 1-3 Total Bilirubin 0.50 mg/dL N 0.2-1.0 Alkaline Phosphatase 35 U/L N 34-104 Alt 14 U/L N 7-52 Ast 20 U/L N 13-39 Egfr Non- 68.3 N >60 Egfr 87.8 N >60 56 Laboratory test 01/07/2016 [facility] C Reactive < 1.00 N < 5.00 [address] Protein mg/[place] [address] [phone] CBC Auto Diff 01/07/2016 [facility] White Blood 5.5 N 3.5-10.[address] Count 10^3/[place] [address] [phone] Red Blood Count 4.15 10^6/uL N 4.0-5.4 Hemoglobin 13.1 g/dL N 12.0-16.0 Hematocrit 40 % N 35-47 Mean Corpuscular Volume 96 fL N 80-97 Mean Corpuscular Hemoglobin 32 pg High 27-31 Mean Corpuscular HGB Conc 33 g/dL N 31-36 Red Cell Distribution Width 13 % N 10.5-15 Platelet Count 202 10^3/uL N 150-450 Mean Platelet Volume 11 um3 High 7.4-10.4 Abs Neutrophils 3.0 10^3/uL N 1.5-7.7 Abs Lymphocytes 1.8 10^3/uL N 1.0-4.8 Abs Monocytes 0.3 10^3/uL N 0-0.8 Abs Eosinophils 0.3 10^3/uL N 0-0.6 Abs Basophils 0 10^3/uL N 0-0.2 Abs Nucleated RBC 0 10^3/uL N Granulocyte % 54.4 % N 38-83 Lymphocyte % 32.7 % N 25-47 Monocyte % 6.2 % N 1-9 Eosinophil % 6.1 % High 0-6 Basophil % 0.6 % N 0-2 Nucleated Red Blood Cells % 0.1 N Laboratory test 01/07/2016 [facility] Erythrocyte Sed 10 mm/Hr N 0-[address] [place] [address] [phone] Yasmani (Anti-Nuclear AB) Screen Negative N Negative Mikaela Screen Negative N Negative 58 Laboratory test 05/20/2015 [facility] Troponin I 0.00 ng/mL N < 0.03 59 finding [address] [place] [address] [phone] CBC Auto Diff 05/20/2015 [facility] White Blood 7.2 N 4.8-10.8 [address] [facility] [address] Count 10^3/[place] [address] [phone] Red Blood Count 4.26 10^6/uL N 4.0-5.4 Hemoglobin 13.4 g/dL N 12.0-16.0 Hematocrit 41 % N 35-47 Mean Corpuscular Volume 96 fL N 80-97 Mean Corpuscular Hemoglobin 31 pg N 27-31 Mean Corpuscular HGB Conc 33 g/dL N 31-36 Red Cell Distribution Width 13 % N 10.5-15 Platelet Count 192 10^3/uL N 150-450 Mean Platelet Volume 11 um3 High 7.4-10.4 Abs Neutrophils 5.0 10^3/uL N 1.5-7.7 Abs Lymphocytes 1.5 10^3/uL N 1.0-4.8 Abs Monocytes 0.4 10^3/uL N 0-0.8 Abs Eosinophils 0.2 10^3/uL N 0-0.6 Abs Basophils 0.1 10^3/uL N 0-0.2 Abs Nucleated RBC 0 10^3/uL N Granulocyte % 69.8 % N 38-83 Lymphocyte % 20.4 % Low 25-47 Monocyte % 5.9 % N 1-9 Eosinophil % 3.2 % N 0-6 Basophil % 0.7 % N 0-2 Nucleated Red Blood Cells % 0 N Laboratory test 05/20/2015 [facility] Lactic Acid 0.8 mmol/L N 0.5-2.2 finding [address] [place] [address] [phone] Comp Metabolic 05/20/2015 [facility] Sodium 133 mmol/L N 133- [address] [place] [address] [phone] Potassium 3.5 mmol/L N 3.5-5.0 Chloride 102 mmol/L N 101-111 Co2 Carbon Dioxide 25 mmol/L N 22-32 Anion Gap 6 mmol/L N 2-11 Glucose 86 mg/dL N 70-100 Blood Urea Nitrogen 18 mg/dL N 6-24 Creatinine 0.80 mg/dL N 0.51-0.95 BUN/Creatinine Ratio 22.5 High 8-20 Calcium 8.7 mg/dL N 8.6-10.3 Total Protein 6.6 g/dL N 6.4-8.9 Albumin 3.9 g/dL N 3.2-5.2 Globulin 2.7 g/dL N 2-4 Albumin/Globulin Ratio 1.4 N 1-3 Total Bilirubin 0.60 mg/dL N 0.2-1.0 Alkaline Phosphatase 29 U/L Low 34-104 Alt 10 U/L N 7-52 Ast 15 U/L N 13-39 Egfr Non- 77.2 N >60 Egfr 99.3 N >60 60 Laboratory test 05/20/2015 [facility] Magnesium 1.9 mg/dL N 1.9 -2.[address] [place], [place] [id number] [phone] Troponin I 0.00 ng/mL N <0.03 61 TSH (Thyroid Stim Horm) 1.36 ?IU/mL N 0.34-5.60 Laboratory test 02/19/2015 [facility] Sedimentation Rate 9 mm/hr 0-[address] [place] [address] [phone] CBS W/Automated 02/19/2015 [facility] White Blood Count 7.4 K/uL 3.1-10.[address] [place] [address] [phone] Red Blood Count 4.12 M/uL 3.90-5.40 Hemoglobin 12.9 gm/dL 11.6-15.8 Hematocrit 39.2 % 36.0-46.1 Mean Cell Volume 95.1 fl 80.9-99.0 Mean Corpuscular HGB 31.3 pg 25.9-32.7 Mean Corpuscular HGB Conc 32.9 g/dL 30.8-34.3 Platelet Count 195 K/uL 155-360 Red Cell Distri Width SD 42.1 fl 3-47 Red Cell Distri Width %CV 12.4 % 11.7-14.4 Mean Platelet Volume 12.6 fL High 8.9-12.4 Neut% 54.4 % 40.4-72.8 Lymph % 32.8 % 17.0-46.1 [place] % 7.8 % 4.3-13.2 Eo% 4.3 % 0.0-6.6 Bas% 0.7 % 0.0-1.1 Neut# 4.05 K/uL 1.0-7.0 Lymph # 2.44 K/uL 1.8-7.0 [place] # 0.58 K/uL 0.3-0.9 Eos # 0.32 K/uL 0.0-0.5 Baso # 0.05 K/uL 0.0-0.1 Antinuclear 02/19/2015 [facility] Antinuclear See patterns . 62 Antibodies, Ifa [address] Antibodies, [place] [address] [phone] Speckled Pattern 1:80 . Note See Note 63 Laboratory test 02/19/2015 [facility] Thyroid Stim 1.87 uIU/mL 0.36-3.[address] [place] [address] [phone] Free T4 0.85 ng/dL 0.76-1.46 Rheumatoid Factor Screen < 10.0 IU/mL 0.0-15.0 C-Reactive Protein,Quant < 2.9 mg/L <3.0 CCP Igg/Iga Antibodies 3 units 0-19 64 LDL Cholesterol 02/19/2015 [facility] Cholesterol 134 mg/dL < 200 [address] [place] [address] [phone] Triglycerides 55 mg/dL < 150 66 HDL Cholesterol 80 mg/dL > 40 67 LDL-Cholesterol 43 mg/dL < 100 68 Comprehensive Metabolic 02/19/2015 [facility] Glucose 99 mg/dL 74-[address] [place] [address] [phone] BUN 23 mg/dL High 7-18 Creatinine 1.1 mg/dL 0.6-1.3 Glom Filtration Rate, Estimate 57 mL/min >60 If >60 mL/min >60 69 BUN/Creat 20.9 ratio Sodium 140 mmol/L 136-145 Potassium 3.7 mmol/L 3.5-5.1 Chloride 107 mmol/L 98-107 Carbon Dioxide 24 mmol/L 21-32 Anion Gap 9 mEq/L 8-16 Calcium 8.4 mg/dL Low 8.5-10.1 Total Protein 6.8 g/dL 6.4-8.2 Albumin 3.6 g/dL 3.4-5.0 Globulin 3.2 g/dL 1.9-4.3 Alb/Glob 1.1 ratio Bilirubin,Total 0.1 mg/dL Low 0.2-1.0 Sgot/Ast 14 U/L Low 15-37 70 SGPT/Alt 17 U/L 12-78 Alkaline Phosphatase 39 U/L Low 45-117 Liver Function 02/19/2015 [facility] Total Protein 6.8 g/dL 6.4-8.[address] [place], [place] [address] [phone] Albumin 3.6 g/dL 3.4-5.0 Globulin 3.2 g/dL 1.9-4.3 Alb/Glob 1.1 ratio Bilirubin,Total 0.1 mg/dL Low 0.2-1.0 Bilirubin,Direct < 0.1 mg/dL 0.0-0.2 Sgot/Ast 14 U/L Low 15-37 71 SGPT/Alt 17 U/L 12-78 Alkaline Phosphatase 39 U/L Low 45-117 Comprehensive Metabolic 04/15/2014 [facility] Glucose 88 mg/dL 76-[address] [place] [address] [phone] BUN 14 mg/dL 5-23 Creatinine 0.8 mg/dL 0.5-1.4 Glom Filtration Rate, Estimate >60 mL/min >60 If >60 mL/min >60 72 BUN/Creat 17.5 ratio Sodium 136 mmol/L 136-145 Potassium 3.8 mmol/L 3.5-5.1 Chloride 106 mmol/L 98-107 Carbon Dioxide 26 mEq/L 18-29 Anion Gap 8 mEq/L 8-16 Calcium 9.2 mg/dL 8.5-10.1 Total Protein 7.4 g/dL 6.3-8.0 Albumin 3.8 g/dL 3.5-5.0 Globulin 3.6 g/dL 1.9-4.3 Alb/Glob 1.1 ratio Bilirubin,Total 0.4 mg/dL 0.2-1.2 Sgot/Ast 17 U/L 16-40 SGPT/Alt 22 U/L Low 30-65 Alkaline Phosphatase 46 U/L Low 50-136 Laboratory test 04/15/2014 [facility] C-Reactive < 2.9 0.0-4.9 [address] Protein,Quant mg/L [place], [place] [id number] [phone] CCP Igg/Iga Antibodies 7 units 0-19 74 Antinuclear 04/15/2014 [facility] Antinuclear See patterns . 75 Antibodies, Ifa [address] Antibodies, [place] [address] [phone] Speckled Pattern 1:80 . Note See Note 76 Antiextractable 04/15/2014 [facility] SM Antibody < 0.2 AI 0.0-0.9 Nuclear Ag [address] [place] [address] [phone] SHELLFISH GROWER Antibody <0.2 AI 0.0-0.9 77 CBS W/Automated 04/15/2014 [facility] White Blood 4.7 K/uL 3.1-10.[address] [place] [address] [phone] Red Blood Count 4.48 M/uL 3.90-5.40 Hemoglobin 14.1 gm/dL 11.6-15.8 Hematocrit 41.9 % 36.0-46.1 Mean Cell Volume 93.5 fl 80.9-99.0 Mean Corpuscular HGB 31.5 pg 25.9-32.7 Mean Corpuscular HGB Conc 33.7 g/dL 30.8-34.3 Platelet Count 233 K/uL 155-360 Red Cell Distri Width SD 42.4 fl 3-47 Red Cell Distri Width %CV 12.6 % 11.7-14.4 Mean Platelet Volume 11.7 fL 8.9-12.4 Neut% 49.9 % 40.4-72.8 Lymph % 36.9 % 17.0-46.1 [place] % 8.5 % 4.3-13.2 Eo% 3.6 % 0.0-6.6 Bas% 1.1 % 0.0-1.1 Neut# 2.35 K/uL 1.0-7.0 Lymph # 1.74 K/uL 0.8-3.4 [place] # 0.40 K/uL 0.3-0.9 Eos # 0.17 K/uL 0.0-0.5 Baso # 0.05 K/uL 0.0-0.1 Laboratory test 04/15/2014 [facility] Sedimentation Rate 9 mm/hr 0-20 [address] [place], [place] [address] [phone] Rheumatoid Factor Screen NEGATIVE Negative 79 Affirm Vaginal Dna 11/01/2013 [facility] Affirm (SEE NOTE) [address] [place] [address] Probe [phone] GC/Chlamydia 11/01/2013 [facility] GC/Chlamydia (SEE NOTE) 81 Amplified Rna [address] [facility] [place] [address] [phone] Urine Culture And 11/01/2013 [facility] Urine Culture (SEE NOTE) [address] [place], [place] [address] [phone] Liver Function 10/30/2013 [facility] Total Protein 7.6 g/dL 6.3-8. Tests [address] 0 [place], [place] [address] [phone] Albumin 3.9 g/dL 3.5-5.0 Globulin 3.7 g/dL 1.9-4.3 Alb/Glob 1.1 ratio Bilirubin,Total 0.3 mg/dL 0.2-1.2 Bilirubin,Direct < 0.1 mg/dL Low 0.1-0.4 Bilirubin,Indirect 0.2 mg/dL 0.0-0.9 Sgot/Ast 15 U/L Low 16-40 SGPT/Alt 21 U/L Low 30-65 Alkaline Phosphatase 51 U/L 50-136 Comprehensive Metabolic 10/30/2013 [facility] Glucose 91 mg/dL 76-[address] [place] [address] [phone] BUN 12 mg/dL 5-23 Creatinine 0.8 mg/dL 0.5-1.4 Glom Filtration Rate, Estimate >60 mL/min >60 If >60 mL/min >60 83 BUN/Creat 15.0 ratio Sodium 137 mmol/L 136-145 Potassium 4.2 mmol/L 3.5-5.1 Chloride 105 mmol/L 98-107 Carbon Dioxide 27 mEq/L 18-29 Anion Gap 9 mEq/L 8-16 Calcium 8.9 mg/dL 8.5-10.1 Total Protein 7.6 g/dL 6.3-8.0 Albumin 3.9 g/dL 3.5-5.0 Globulin 3.7 g/dL 1.9-4.3 Alb/Glob 1.1 ratio Bilirubin,Total 0.3 mg/dL 0.2-1.2 Sgot/Ast 15 U/L Low 16-40 SGPT/Alt 21 U/L Low 30-65 Alkaline Phosphatase 51 U/L 50-136 LDL Cholesterol 10/30/2013 [facility] Cholesterol 155 mg/dL 120-[address] [place], [place] [id number] [phone] Triglycerides 64 mg/dL 16-231 HDL Cholesterol 84 mg/dL High 29-83 LDL-Cholesterol 58 mg/dL Low 62-185 CBC W/Automated 10/30/2013 [facility] White Blood 7.7 K/uL 3.1-10.[address] Count [place], [place] [address] [phone] Red Blood Count 4.55 M/uL 3.90-5.40 Hemoglobin 14.2 gm/dL 11.6-15.8 Hematocrit 42.5 % 36.0-46.1 Mean Cell Volume 93.4 fl 80.9-99.0 Mean Corpuscular HGB 31.2 pg 25.9-32.7 Mean Corpuscular HGB Conc 33.4 g/dL 30.8-34.3 Platelet Count 222 K/uL 155-360 Red Cell Distri Width SD 42.5 fl 3-47 Red Cell Distri Width %CV 12.6 % 11.7-14.4 Mean Platelet Volume 11.4 fL 8.9-12.4 Neut% 65.4 % 40.4-72.8 Lymph % 22.6 % 17.0-46.1 [place] % 7.6 % 4.3-13.2 Eo% 4.0 % 0.0-6.6 Bas% 0.4 % 0.0-1.1 Neut# 5.06 K/uL 1.0-7.0 Lymph # 1.75 K/uL 0.8-3.4 [place] # 0.59 K/uL 0.3-0.9 Eos # 0.31 K/uL 0.0-0.5 Baso # 0.03 K/uL 0.0-0.1 Laboratory test finding 10/30/2013 [facility] CK 104 U/L 26-[address] [place] [address] [phone] Thyroid Stim Hormone 2.10 uIU/mL 0.49-4.67 Free T4 0.95 ng/dL 0.71-1.85 Vitamin D,25-Hydroxy 38.0 ng/mL 30.0-100.0 84 1 I83.813 I87.2 M79.89 2 Note: Persistent reduction for 3 months or more in an eGFR <60 mL/min/1.73 m2 defines CKD. Patients with eGFR values >/=60 mL/min/1.73 m2 may also have CKD if evidence of persistent proteinuria is present. The original MDRD equation for estimated GFR is not valid for patients less than 18 years of age. Additional information may be found at [email or web address]. 3 R53.83 R76.8 4 Note: Persistent reduction for 3 months or more in an eGFR <60 mL/min/1.73 m2 defines CKD. Patients with eGFR values >/=60 mL/min/1.73 m2 may also have CKD if evidence of persistent proteinuria is present. The original MDRD equation for estimated GFR is not valid for patients less than 18 years of age. Additional information may be found at [email or web address]. 5 Method: Sediplast Modified Westergren 6 Negative <1:80 Borderline 1:80 Positive >1:80 Performed at: RN - [facility] [address] [id number] [employer]: Hanna Caldwell MD, Phone: [phone] Pharm Spec: [id number] 8 L FLANK PAIN 9 Note: Persistent reduction for 3 months or more in an eGFR <60 mL/min/1.73 m2 defines CKD. Patients with eGFR values >/=60 mL/min/1.73 m2 may also have CKD if evidence of persistent proteinuria is present. The original MDRD equation for estimated GFR is not valid for patients less than 18 years of age. Additional information may be found at [email or web address]. 10 POSSIBLE UROGENITAL CONTAMINATION. 11 URINE, CLEAN CATCH 12 CHEST PAIN 13 0.0 - 0.045 ng/mL: Normal 0.046 - 0.5 ng/mL: Suggestive 0.6 - 1.5 ng/mL: Consistent 14 Note: Persistent reduction for 3 months or more in an eGFR <60 mL/min/1.73 m2 defines CKD. Patients with eGFR values >/=60 mL/min/1.73 m2 may also have CKD if evidence of persistent proteinuria is present. The original MDRD equation for estimated GFR is not valid for patients less than 18 years of age. Additional information may be found at [email or web address]. 15 0.0 - 0.045 ng/mL: Normal 0.046 - 0.5 ng/mL: Suggestive 0.6 - 1.5 ng/mL: Consistent 16 0.0 - 0.045 ng/mL: Normal 0.046 - 0.5 ng/mL: Suggestive 0.6 - 1.5 ng/mL: Consistent 17 L ARM NUMBNESS, NAUSEA, CHEST ACHES 18 Note: Persistent reduction for 3 months or more in an eGFR <60 mL/min/1.73 m2 defines CKD. Patients with eGFR values >/=60 mL/min/1.73 m2 may also have CKD if evidence of persistent proteinuria is present. The original MDRD equation for estimated GFR is not valid for patients less than 18 years of age. Additional information may be found at [email or web address]. 19 0.0 - 0.045 ng/mL: Normal 0.046 - 0.5 ng/mL: Suggestive 0.6 - 1.5 ng/mL: Consistent 20 I83.813 I87.2 21 R76.8 J20.9 E78.2 E03.9 22 Negative <1:80 Borderline 1:80 Positive >1:80 23 Negative <5 Equivocal 5 - 9 Positive >9 Performed at: - [facility] [address] [id number] [employer]: Hanna Caldwell MD, Phone: [phone] 24 Method: Sediplast Modified [place] 25 Reference Guidelines*: Desirable: ........... < 200 mg/dL Borderline High: ..... 200-239 mg/dL High: ................ >=240 mg/dL * The National Cholesterol Education Program (NCEP) 26 Reference Guidelines*: Normal: ............. < 150 mg/dL Borderline High: .... 150-199 mg/dL High: ............... 200-499 mg/dL Very High: .......... > 500 mg/dL * Source: National Cholesterol Education Program (NCEP) 27 Reference Guidelines*: Low HDL: ..... < 40 mg/dL Normal: ..... 40-60 mg/dL Desirable: ... > 60 mg/dL *The National Cholesterol Education Program(NCEP) 28 Reference Guidelines*: Optimal:........... <100 mg/dL Near Optimal....... 100-129 mg/dL Borderline High.... 130-159 mg/dL High............... 160-189 mg/dL Very High.......... >=190 mg/dL * Source: National Cholesterol Education Program (NCEP) 29 Note: Persistent reduction for 3 months or more in an eGFR <60 mL/min/1.73 m2 defines CKD. Patients with eGFR values >/=60 mL/min/1.73 m2 may also have CKD if evidence of persistent proteinuria is present. The original MDRD equation for estimated GFR is not valid for patients less than 18 years of age. Additional information may be found at www.[email or web address]. 30 URINE, CLEAN CATCH 31 R76.8 32 Negative <1:80 Borderline 1:80 Positive >1:80 33 A positive YASMANI result may occur in healthy individuals (low titer) or be associated with a variety of diseases. See interpretation chart which is not all inclusive: Pattern Antigen Detected Suggested Disease Association Homogeneous DNA(ds,ss), SLE - High titers Nucleosomes, Histones Drug-induced SLE Speckled Sm, SHELLFISH GROWER, SCL-70, SLE,MCTD,PSS (diffuse form), SS-A/SS-B Sjogrens Nucleolar SCL-70, PM-1/SCL High titers Scleroderma, PM/DM Centromere Centromere PSS (limited form) w/Crest syndrome variable Nuclear Dot [id number] Primary Biliary Cirrhosis Nuclear GP210, Primary Biliary Cirrhosis Membrane danielle A,B,C 34 Performed at: [facility] [address] [id number] [employer]: Hanna Caldwell MD, Phone: [phone] ACUTE APPENDICITIS 36 Note: Persistent reduction for 3 months or more in an eGFR <60 mL/min/1.73 m2 defines CKD. Patients with eGFR values >/=60 mL/min/1.73 m2 may also have CKD if evidence of persistent proteinuria is present. The original MDRD equation for estimated GFR is not valid for patients less than 18 years of age. Additional information may be found at [email or web address]. 37 JENNY TO ADRIANNA 38 10,000 - 50,000 CFU/mL 39 ACUTE APPENDICITIS [address] [facility] ACUTE APPENDICITIS 41 URINE, CLEAN CATCH 42 ACUTE APPENDICITIS 43 Tests: BNP Instructions: 44 PERFORMED BY [employer] ([id number]) 45 Note: Persistent reduction for 3 months or more in an eGFR <60 mL/min/1.73 m2 defines CKD. Patients with eGFR values >/=60 mL/min/1.73 m2 may also have CKD if evidence of persistent proteinuria is present. The original MDRD equation for estimated GFR is not valid for patients less than 18 years of age. Additional information may be found at www.[email or web address]. 46 Reference Guidelines*: Desirable: ........... < 200 mg/dL Borderline High: ..... 200-239 mg/dL High: ................ >=240 mg/dL * The National Cholesterol Education Program (NCEP) 47 Reference Guidelines*: Normal: ............. < 150 mg/dL Borderline High: .... 150-199 mg/dL High: ............... 200-499 mg/dL Very High: .......... > 500 mg/dL * Source: National Cholesterol Education Program (NCEP) 48 Reference Guidelines*: Low HDL: ..... < 40 mg/dL Normal: ..... 40-60 mg/dL Desirable: ... > 60 mg/dL *The National Cholesterol Education Program(NCEP) 49 Reference Guidelines*: Optimal:........... <100 mg/dL Near Optimal....... 100-129 mg/dL Borderline High.... 130-159 mg/dL High............... 160-189 mg/dL Very High.......... >=190 mg/dL * Source: National Cholesterol Education Program (NCEP) 50 J01.90, E78.5, E03.9 51 Desirable <150 Borderline high 150-199 High 200-499 Very High >500 52 Desirable <200 Borderline high 200-239 High >239 53 Low <40 Desirable: 40-60 High: >60 54 Desirable: <100 mg/dL Near Optimal: 100-129 mg/dL Borderline High: 130-159 mg/dL High: 160-189 mg/dL Very High: >189 mg/dL 55 Because ethnic data is not always readily available, this report includes an eGFR for both -Americans and non- Americans. The National Kidney Disease Education Program (NKDEP) does not endorse the use of the MDRD equation for patients that are not between the ages of 18 and 70, are , have extremes of body size, muscle mass, or nutritional status, or are non- or non-. According to the National Kidney Foundation, irrespective of diagnosis, the stage of the disease is based on the level of kidney function: Stage Description GFR(mL/min/1.73 m(2)) 1 Kidney damage with normal or decreased GFR 90 2 Kidney damage with mild decrease in GFR 60-89 3 Moderate decrease in GFR 30-59 4 Severe decrease in GFR 15-29 5 Kidney failure <15 (or dialysis) 56 Because ethnic data is not always readily available, this report includes an eGFR for both -Americans and non- Americans. The National Kidney Disease Education Program (NKDEP) does not endorse the use of the MDRD equation for patients that are not between the ages of 18 and 70, are , have extremes of body size, muscle mass, or nutritional status, or are non- or non-. According to the National Kidney Foundation, irrespective of diagnosis, the stage of the disease is based on the level of kidney function: Stage Description GFR(mL/min/1.73 m(2)) 1 Kidney damage with normal or decreased GFR 90 2 Kidney damage with mild decrease in GFR 60-89 3 Moderate decrease in GFR 30-59 4 Severe decrease in GFR 15-29 5 Kidney failure <15 (or dialysis) 57 Acute inflammation: >10.00 58 The above MIKAELA screen is designed for the detection of antibodies to extractable nuclear antigen (MIKAELA) in human serum. It is a combination test for the detection of antibodies to SHELLFISH GROWER, Sm, SS-A (Ro), and SS-B (La) nuclear antigens. 59 Reference Range and Interpretation: TnI (ng/mL) Interpretation Less Than 0.03 ng/mL Not supportive of diagnosis of GA 0.03 - 0.50 ng/mL Indeterminate: suggest serial studies if clinically indicated. Greater than 0.5 ng/mL Consistent with diagnosis of GA 60 Because ethnic data is not always readily available, this report includes an eGFR for both -Americans and non- Americans. The National Kidney Disease Education Program (NKDEP) does not endorse the use of the MDRD equation for patients that are not between the ages of 18 and 70, are , have extremes of body size, muscle mass, or nutritional status, or are non- or non-. According to the National Kidney Foundation, irrespective of diagnosis, the stage of the disease is based on the level of kidney function: Stage Description GFR(mL/min/1.73 m(2)) 1 Kidney damage with normal or decreased GFR 90 2 Kidney damage with mild decrease in GFR 60-89 3 Moderate decrease in GFR 30-59 4 Severe decrease in GFR 15-29 5 Kidney failure <15 (or dialysis) 61 Reference Range and Interpretation: TnI (ng/mL) Interpretation Less Than 0.03 ng/mL Not supportive of diagnosis of GA 0.03 - 0.50 ng/mL Indeterminate: suggest serial studies if clinically indicated. Greater than 0.5 ng/mL Consistent with diagnosis of GA 62 Negative <1:80 Borderline 1:80 Positive >1:80 63 A positive YASMANI result may occur in healthy individuals or be associated with a variety of diseases. See interpre- tation below: Pattern Antigen Detected Suggested Disease Association Homogeneous DNA(ds,ss,), High titers - SLE (Smooth) Histone Speckled Sm, SHELLFISH GROWER, SCL-70, SLE,MCTD,Scleroderma,Sjogrens SS-A/SS-B Nucleolar SCL-70, PM-1/SCL High titers Scleroderma Poly- myositis/Scleroderma Overlap Centromere Centromere PSS w/Crest syndrome variable Performed at: [facility] [id number] [employer]: Fadi Bowen MD, Phone: [phone] Performed at: [facility] Lab[address] [id number] [employer]: Hanna Caldwell MD, Phone: [phone] Negative <20 Weak positive 20 - 39 Moderate positive 40 - 59 Strong positive >59 65 Reference Guidelines*: Desirable: ........... < 200 mg/dL Borderline High: ..... 200-239 mg/dL High: ................ >=240 mg/dL * The National Cholesterol Education Program (NCEP) 66 Reference Guidelines*: Normal: ............. < 150 mg/dL Borderline High: .... 150-199 mg/dL High: ............... 200-499 mg/dL Very High: .......... > 500 mg/dL * Source: National Cholesterol Education Program (NCEP) 67 Reference Guidelines*: Low HDL: ..... < 40 mg/dL Normal: ..... 40-60 mg/dL Desirable: ... > 60 mg/dL *The National Cholesterol Education Program(NCEP) 68 Reference Guidelines*: Optimal:........... <100 mg/dL Near Optimal....... 100-129 mg/dL Borderline High.... 130-159 mg/dL High............... 160-189 mg/dL Very High.......... >=190 mg/dL * Source: National Cholesterol Education Program (NCEP) 69 Note: Persistent reduction for 3 months or more in an eGFR <60 mL/min/1.73 m2 defines CKD. Patients with eGFR values >/=60 mL/min/1.73 m2 may also have CKD if evidence of persistent proteinuria is present. The original MDRD equation for estimated GFR is not valid for patients less than 18 years of age. Additional information may be found at www.kdoqi.org. 70 Values below the stated reference ranges of AST and ALT can be seen in normal populations. Clinical correlation is suggested. 71 Values below the stated reference ranges of AST and ALT can be seen in normal populations. Clinical correlation is suggested. 72 Note: Persistent reduction for 3 months or more in an eGFR <60 mL/min/1.73 m2 defines CKD. Patients with eGFR values >/=60 mL/min/1.73 m2 may also have CKD if evidence of persistent proteinuria is present. The original MDRD equation for estimated GFR is not valid for patients less than 18 years of age. Additional information may be found at www.kdoqi.org. 73 CC: MD ADI REDD FAX RESULTS TO MD JAG WYATT [phone] 74 Negative <20 Weak positive 20 - 39 Moderate positive 40 - 59 Strong positive >59 75 Negative <1:80 Borderline 1:80 Positive >1:80 76 A positive YASMANI result may occur in healthy individuals or be associated with a variety of diseases. See interpre- tation below: Pattern Antigen Detected Suggested Disease Association Homogeneous DNA(ds,ss,), High titers - SLE (Smooth) Histone Speckled Sm, SHELLFISH GROWER, SCL-70, SLE,MCTD,Scleroderma,Sjogrens SS-A/SS-B Nucleolar SCL-70, PM-1/SCL High titers Scleroderma Poly- myositis/Scleroderma Overlap Centromere Centromere PSS w/Crest syndrome variable 77 Performed at: [facility] [id number] [employer]: Hanna Caldwell MD, Phone: [phone] Performed at: - [facility] [id number] [employer]: Fadi Bowen MD, Phone: [phone] CC: MD ADI REDD FAX RESULTS TO MD JAG WYATT [phone] CC: MD ADI REDD FAX RESULTS TO MD JAG WYATT [phone] RUN DATE: 11/02/13 [facility] LAB LIVE PAGE 1 RUN TIME: 3[address] [place], [place] [address] Specimen Inquiry Name: ILSA HANLEY : [address]: John White MD Acct: [id number] Unit: [id number] AGE: 43 Location: [facility] Re11/01/13 SEX: F Status: DEP ER SPEC: [id number] MATTHEW: 11/01/[address] [facility] [address]: John White MD REQ: [id number] RECD: 11/01/13 STATUS: ROHIT CHAVES DR: Adi Redd MD _ SOURCE: VAGINAL SPDESC: ORDERED: Affirm Procedure Result Verified Site Affirm Vaginal DNA Probe Final 11/02/13- 1303 ML Organism 1 Negative Trichomonas Organism 2 Negative Gardnerella Organism 3 Negative Pat The presence of G. vaginalis, although suggestive, is not diagnostic for bacterial vaginosis. Results should be interpreted in conjunction with other clinical and laboratory data available. Women with vaginal discharge should be evaluated for risk factors of cervicitis and pelvic inflammatory disease, toxic shock syndrome (S.aureus), and if present, evaluated for organisms not included in this assay such as N. gonorrhoeae, C. trachomatis, Mobiluncus, Mycoplasma and/or Prevotella. Mixed infections may occur. The performance of this test on patient specimens collected during or immediately after antimicrobial therapy is unknown. The presence or absence of Pat species, G. vaginalis or T. vaginalis cannot be used as a test for therapeutic success or failure. END OF REPORT * ML=Testing performed at Main Lab DEPARTMENT OF PATHOLOGY, [facility] [employer] [place], [place] [address] Aditya Bang M.D. Director [facility] Permit #[id number] RUN DATE: 11/05/13 [facility] LAB LIVE PAGE 1 RUN TIME: [address] [place] [address] Specimen Inquiry Name: ILSA HANLEY : [address]: John White MD Acct: [id number] Unit: [id number] AGE: 43 Location: [facility] Re11/01/13 SEX: F Status: DEP ER SPEC: [id number] MATTHEW: 11/01/13-[address]: John White MD REQ: [id number] RECD: 11/01/13 STATUS: COMP [facility] DR: Adi Redd MD _ SOURCE: ENDOCERVIX SPDESC: ORDERED: GC/Chlam RNA Procedure Result Verified Site Chlamydia Trachomatis RNA Final 11/05/13- 1317 ML NEGATIVE for Chlamydia trachomatis rRNA GC (N. gonorrhoeae) RNA Final 11/05/13- 1325 ML NEGATIVE for Neisseria gonorrhoeae rRNA A negative result does not preclude the presence of a C. trachomatis or N. gonorrhoeae infection because results are dependent on adequate specimen collection, absence of inhibitors, and sufficient rRNA to be detected. Test results may be affected by improper specimen collection, improper storage, technical error, or specimen mixup. Limitations of the Procedure: The Aptima Combo 2 Assay is not intended for the evaluation of suspected sexual abuse or for other medico-legal indications. For those patients for whom a false positive result may have adverse psychosocial impact, the [facility] recommends retesting by a method using an alternate technology. Therapeutic failure or success cannot be determined with the Aptima Combo 2 Assay since nucleic acid may persist following appropriate antimicrobial therapy. Results from the Aptima Combo 2 Assay should be interpreted in conjunction with other laboratory and clinical data available to the clinican. Performance characteristics for detecting C. trachomatis and CONTINUED ON NEXT PAGE * ML=Testing performed at Main Lab DEPARTMENT OF PATHOLOGY, [facility] [employer] [place] [address] Aditya Bang M.D. Director [facility] Permit #[id number] RUN DATE: 11/05/13 [facility] LAB LIVE PAGE 2 RUN TIME: 1325 [facility] [employer] [place], [place] [address] Specimen Inquiry Patient: ILSA HANLEY Heidi [id number] (Continued) Specimen: [id number] Collected: 11/01/13-1622 Received: 11/01/13-1848 (Continued) Procedure Result Verified Site GC (N. gonorrhoeae) RNA Final (continued) 11/05/13- 1325 N. gonorrhoeae are derived from high prevalence populations. Positive results in low prevalence populations should be interpreted carefully with the understanding that the likelihood of a false positive may be higher than a true positive. END OF REPORT * ML=Testing performed at Main Lab DEPARTMENT OF PATHOLOGY, [facility] [employer] [place], [place] [address] Aditya Bang M.D. Director [facility] Permit #[id number] RUN DATE: 11/03/13 [facility] LAB LIVE PAGE 1 RUN TIME: 7807 [facility] [place], [place] [address] Specimen Inquiry Name: ILSA HANLEY : [address]: John White MD Acct: [id number] Unit: [id number] AGE: 43 Location: [facility] Re11/01/13 SEX: F Status: DEP ER SPEC: [id number] MATTHEW: 11/01/13-[address] [facility] [address]: John White MD REQ: [id number] RECD: 11/01/13 STATUS: ROHIT CHAVES DR: Adi Redd MD _ SOURCE: URINE SPDESC: ORDERED: Urine Culture Procedure Result Verified Site Urine Culture Final 11/03/13- 1413 ML No Growth Day 2 (<1,000 CFU/mL) END OF REPORT * ML=Testing performed at Main Lab DEPARTMENT OF PATHOLOGY, [address] [place] [address] Aditya Bang M.D. Director [facility] Permit #[id number] Note: Persistent reduction for 3 months or more in an eGFR <60 mL/min/1.73 m2 defines CKD. Patients with eGFR values >/=60 mL/min/1.73 m2 may also have CKD if evidence of persistent proteinuria is present. The original MDRD equation for estimated GFR is not valid for patients less than 18 years of age. Additional information may be found at www.kdoqi.org. 84 Vitamin D deficiency has been defined by the [place] of [employer] and an Endocrine Society practice guideline as a level of serum 25-OH vitamin D less than 20 ng/mL (1,2). The Endocrine Society went on to further define vitamin D insufficiency as a level between 21 and 29 ng/mL (2). 1. IOM ([place] of [employer]). 2010. Dietary reference intakes for calcium and D. [place]: The National Academies Press. 2. Jessee MF, Claudia NC, Julia-Tin RESTREPO, et al. Evaluation, treatment, and prevention of vitamin D deficiency: an Endocrine Society clinical practice guideline. JCEM. 2010; 96(7):1911-30. Performed at: [facility] [address] [id number] [employer]: Hanna Caldwell MD, Phone: [phone] Procedures Date Code Description Status 10/20/2012 [id number] Mammogram Completed Encounters Type Date Location Provider Dx Diagnosis Office Visit 01/11/2018 9:45a Main Office Adi Redd MD J20.9 Acute bronchitis, unspecified J01.90 Acute sinusitis, unspecified H81.03 Meniere's disease, bilateral Office Visit 06/15/2017 2:00p Main Office Adi Redd MD H81.03 Meniere's disease, bilateral J45.20 Mild intermittent asthma, uncomplicated H60.319 Diffuse otitis externa, unspecified ear J20.9 Acute bronchitis, unspecified J01.90 Acute sinusitis, unspecified Z00.00 Encntr for general adult medical exam w/o abnormal findings Office Visit 06/06/2017 1:50p Main Office Rigoberto Cunningham, H60.319 Diffuse otitis MD externa, unspecified ear J20.9 Acute bronchitis, unspecified Office Visit 05/25/2017 2:30p Main Office Melissa Cunningham, J01.90 Acute sinusitis, M.D. unspecified Office Visit 03/01/2017 3:30p Main Office Melissa Cunningham J20.9 Acute bronchitis, M.D. unspecified Office Visit 01/18/2017 3:00p Main Office Melissa Cunningham, J20.9 Acute bronchitis, M.D. 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 J45.20 Mild intermittent asthma, uncomplicated H81.03 Meniere's disease, bilateral H90.0 Conductive hearing loss, bilateral Office Visit 05/02/2016 1:30p Main Office Adi Redd MD J45.20 Mild intermittent asthma, uncomplicated H81.03 Meniere's disease, bilateral H90.0 Conductive hearing loss, bilateral 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 sinusitis, unspecified Office Visit 10/19/2015 4:15p Main Office Adi Redd MD M15.9 Polyosteoarthritis, unspecified J45.20 Mild intermittent asthma, uncomplicated Office Visit 02/26/2015 11:45a Main Office Adi Redd MD 386.00 Menieres Disease Unspec 461.9 Sinusitis Acute Unspec 793.80 Unspecified Abnormal Mammogram 611.79 Breast Signs & Symptoms Other 714.90 Arthritis, Inflammatory GENERAL General Office Visit 03/24/2014 4:15p Main Office Adi Redd MD 461.8 Sinusitis Acute Other 386.00 Menieres Disease Unspec GENERAL General Office Visit 02/24/2014 4:15p Main Office Adi Redd MD 461.8 Sinusitis Acute Other GENERAL General Office Visit 01/14/2014 12:30p Main Office Adi Redd MD 466.0 Bronchitis Acute 536.90 Peptic Disease 714.90 Arthritis, Inflammatory GENERAL General Office Visit 12/25/2013 1:45p Main Office Melissa Cunningham, 493.00 Asthma Extrinsic M.D. 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 V72.0 Examination Eyes & Vision V70.0 Examination General Medical Routine AT Health Care Facility GENERAL General Office Visit 04/09/2013 11:00a Main Office Adi Redd MD 424.0 Mitral Valve Disorder 389.08 Hearing Loss Conductive Combined Types 493.00 Asthma Extrinsic Unspecified 293.83 Mood Disorder In Conditions Classified Elsewhere GENERAL General Plan of Treatment 12/31/2018 - Melissa Cunningham M.D.J20.9 Acute bronchitis, unspecifiedNew Medication: Azithromycin 250 mg - 2 by mouth today, 1 by mouth day 2 thru 5Prednisone 5 mg - 1 by mouth twice a day for one week and then 5 mg every day x 1 weekWork Note - The above is excused from work 01/01/2019 due to illnessComments:Advise trest and fluids. To call office if wheezing worsens or sx persist
[2019-01-25 12:40] VITALS: BP 106/68
--- NOTE | 2019-01-25 14:16 | UC ---
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 Negative: Nausea, Vomiting, Numbness, Thirst, Diaphoresis, Weakness, Pallor, Shivering, Difficulty Breathing , Fever, Chills, Cough, Wheezing, Chest Pain, Hoarseness, Throat Tightening, Abdominal Pain, Lightheadedness, Syncope, Drainage, Bruising, Tenderness, Red Streaks, Joint Swelling - Allergy/Home Medications Allergies/Adverse Reactions: Allergies Allergy/AdvReac Type Severity Reaction Status Date / Time cephalexin [From Keflex] Allergy Hives Verified 01/25/19 12:33 latex Allergy Rash Verified 01/25/19 12:33 mold Allergy Anaphylatic Verified 01/25/19 12:33 Shock mushroom Allergy Anaphylatic Verified 01/25/19 12:33 Shock Penicillins Allergy Hives Verified 01/25/19 12:33 prochlorperazine Allergy RLS Verified 01/25/19 12:33 [From Compazine] Home Medications: Home Medications Albuterol HFA INHALER* [Ventolin HFA Inhaler*] 1 - 2 puff INH Q4H PRN 01/25/19 [ History Confirmed 01/25/19] Loratadine [Claritin 10 MG CAP] 10 mg PO DAILY PRN 01/25/19 [History Confirmed 01/25/19] PMH/Surg Hx/FS Hx/Imm Hx Previously Healthy: Yes - Surgical History Surgical History: Yes Surgery Procedure, Year, and Place: , 2007. Appendectomy 2016 - Family History Known Family History: Positive: Cardiac Disease, Hypertension, Diabetes, Other - dad MS, moom LUPUS - Social History Alcohol Use: Occasionally Substance Use Type: None Smoking Status (MU): Never Smoked Tobacco - Immunization History Most Recent Influenza Vaccination: Not the 2015/2016 Season Most Recent Tetanus Shot: UTD Review of Systems All Other Systems Reviewed And Are Negative: Yes Constitutional: Positive: Fatigue Skin: Positive: Negative Eyes: Positive: Negative ENT: Positive: Negative Respiratory: Positive: Negative Cardiovascular: Positive: Negative Gastrointestinal: Positive: Negative Genitourinary: Positive: Negative Motor: Positive: Negative Neurovascular: Positive: Negative Musculoskeletal: Positive: Edema Neurological: Positive: Negative Psychological: Positive: Negative Physical Exam Triage Information Reviewed: Yes Appearance: Well-Appearing, No Pain Distress, Well-Nourished Vital Signs: Initial Vital Signs Temp 97.9 F 01/25/19 12:35 Pulse 77 01/25/19 12:35 Resp 15 01/25/19 12:35 BP 106/68 01/25/19 12:35 Pulse Ox 100 01/25/19 12:35 Vital Signs Reviewed: Yes Eyes: Positive: Conjunctiva Clear, Other: - mild periorbital edema ENT: Positive: Hearing grossly normal. Negative: Nasal congestion, Nasal drainage, TMs normal, Tonsillar swelling, Tonsillar exudate, Trismus, Muffled voice, Hoarse voice, Dental tenderness, Sinus tenderness, Uvula midline Neck: Positive: Supple, Nontender, Enlarged Nodes @ - slight ant cervical adenopathy Respiratory: Positive: Lungs clear, Normal breath sounds, No respiratory distress, No accessory muscle use Cardiovascular: Positive: RRR, No Murmur Musculoskeletal: Positive: ROM Intact, Edema @ - +1 pretibial edema Neurological: Positive: Alert Psychological Exam: Normal Skin Exam: Normal Course/Dx - Course Course Of Treatment: UA: - protein - Diagnoses Provider Diagnosis: Peripheral edema, Periorbital edema, Fatigue Discharge - Sign-Out/Discharge Documenting (check all that apply): Patient Departure All imaging exams completed and their final reports reviewed: No Studies - Discharge Plan Condition: Stable Disposition: HOME Patient Education Materials: Edema (ED), Fatigue (ED) Referrals: Wilfred Redd MD [Primary Care Provider] - 3 Days (recheck early next week) Additional Instructions: I am unsure of the cause of your EDEMA your urine showed you are not losing any protein from your kidneys a blood count is pending electrolytes are pending a sed rate is pending a mono test is pending a thyroid test is pending if sed rate is elevated I suggest you see your infrastructure solutions architect - Billing Disposition and Condition Condition: STABLE Disposition: Home
[2019-01-25 19:28] LABS: ABS Basophils 0.1 10^3/ul (0-0.2); ABS Eosinophils 0.2 10^3/ul (0-0.6); ABS Lymphocytes 2.3 10^3/ul (1.0-4.8); ABS Monocytes 0.5 10^3/ul (0-0.8); ABS Neutrophils 3.6 10^3/ul (1.5-7.7); ABS Nucleated RBC 0 10^3/ul; Eosinophil % 3.5 %; Hematocrit 41 % (35-47); Hemoglobin 13.2 g/dl (12.0-16.0); Lymphocyte % 34.1 %; Mean Corpuscular HGB Conc 33 g/dl (31-36); Mean Corpuscular Hemoglobin 31 pg (27-31); Mean Corpuscular Volume 95 fL (80-97); Mean Platelet Volume 10.9 fL (7.4-10.4); Nucleated Red Blood Cells % 0.1; Platelet Count 243 10^3/ul (150-450); Red Blood Count 4.29 10^6/ul (4.00-5.40); Red Cell Distribution Width 13 % (10.5-15); White Blood Count 6.7 10^3/ul (3.5-10.8)
[2019-01-25 19:53] LABS: TSH (Thyroid Stimulating Horm) 1.47 mcIU/mL (0.34-5.60)
[2019-01-25 20:01] LABS: Albumin 4.3 g/dL (3.2-5.2); Calcium 9.3 mg/dL (8.6-10.3); Potassium 4.2 mmol/L (3.5-5.0); Total Bilirubin 0.3 mg/dL (0.2-1.0)
[2019-01-25 20:07] LABS: Albumin/Globulin Ratio 1.5 (1-3); BUN/Creatinine Ratio 18.7 (8-20); EGFR African American 79.5 (>60); EGFR Non-African American 65.7 (>60); Globulin 2.8 g/dL (2-4); Total Protein 7.1 g/dL (6.4-8.9)
[2019-01-26 17:59] LABS: Erythrocyte Sed Rate 11 mm/Hr (0-20)
--- NOTE | 2019-01-27 07:28 | UC ---
- Progress Note Progress Note: Group B strep pos. I will send in bactrim. Please make sure patient has follow up. Course/Dx - Diagnoses Provider Diagnoses: Peripheral edema, Periorbital edema, Fatigue Discharge - Sign-Out/Discharge Documenting (check all that apply): Post-Discharge Follow Up All imaging exams completed and their final reports reviewed: No Studies - Discharge Plan Condition: Stable Disposition: HOME Patient Education Materials: Fatigue (ED), Edema (ED) Referrals: Wilfred Redd MD [Primary Care Provider] - 3 Days (recheck early next week) Additional Instructions: I am unsure of the cause of your EDEMA your urine showed you are not losing any protein from your kidneys a blood count is pending electrolytes are pending a sed rate is pending a mono test is pending a thyroid test is pending if sed rate is elevated I suggest you see your financial planning advisor a urine culture is pending as well - Billing Disposition and Condition Condition: STABLE Disposition: Home
== END 2019-01-25 14:42 | disposition home or self-care (01) ==
LOC: UCCORT 11:48
DX: R53.83 Other fatigue (principal); R60.0 Localized edema; H57.89 Other specified disorders of eye and adnexa; R21 Rash and other nonspecific skin eruption; R70.0 Elevated erythrocyte sedimentation rate; R59.0 Localized enlarged lymph nodes; Z88.1 Allergy status to other antibiotic agents; Z91.09 Other allergy status, other than to drugs and biological substances; Z91.018 Allergy to other foods; Z88.0 Allergy status to penicillin; Z88.8 Allergy status to other drugs, medicaments and biological substances; Z91.040 Latex allergy status
CPT/HCPCS: 36415; 80053; 81003; 84443; 85025; 85652; 86308; 87086; 87088; 99211; G0463

== ENCOUNTER 2019-03-06 13:58 | Emergency (ER) | payer OTHER ==
[2019-03-06 15:02] VITALS: BP 115/79
--- NOTE | 2019-03-06 15:17 | UC ---
[facility] HPI - HPI Summary HPI Summary: Pt c/o right lower jaw/tooth ache that began last evening. Pt reports that she woke this morning with right lower jaw swelling and tenderness. Pt attempted to make appointment with dentist but appointment was subsequently canceled by dentist. Pt has a crown on right lower molar. States she has had difficulty with that tooth. - History of Current Complaint Stated Complaint: LUMP LOWER RIGHT JAW/TOOTHACHE Time Seen by Provider: 03/06/19 14:59 Hx Obtained From: Patient Hx Last Menstrual Period: [id number] ?: No Onset/Duration: Sudden Onset, Lasting Days, Still Present Severity: Moderate Pain Intensity: 3 Aggravating Factor(s): Heat, Cold, Chewing Alleviating Factor(s): Nothing Related History: Previous Dental Care on Same Tooth, Swelling - Allergies/Home Medications Allergies/Adverse Reactions: Allergies Allergy/AdvReac Type Severity Reaction Status Date / Time cephalexin [From Keflex] Allergy Hives Verified 03/06/19 15:02 latex Allergy Rash Verified 03/06/19 15:02 mold Allergy Anaphylatic Verified 03/06/19 15:02 Shock mushroom Allergy Anaphylatic Verified 03/06/19 15:02 Shock Penicillins Allergy Hives Verified 03/06/19 15:02 prochlorperazine Allergy RLS Verified 03/06/19 15:02 [From Compazine] PMH/Surg Hx/FS Hx/Imm Hx Previously Healthy: Yes - Surgical History Surgical History: Yes Surgery Procedure, Year, and Place: , 2007. Appendectomy 2017 - Family History Known Family History: Positive: Cardiac Disease, Hypertension, Diabetes, Other - dad MS, moom LUPUS - Social History Occupation: Employed Full-time Lives: With Family Alcohol Use: Occasionally Substance Use Type: None Smoking Status (MU): Never Smoked Tobacco Have You Smoked in the Last Year: No - Immunization History Most Recent Influenza Vaccination: Not the 2016/2017 Season Most Recent Tetanus Shot: UTD Vaccination Up to Date: Yes Review of Systems All Other Systems Reviewed And Are Negative: Yes Constitutional: Positive: Negative Skin: Positive: Negative Eyes: Positive: Negative ENT: Positive: Dental Pain Respiratory: Positive: Negative Cardiovascular: Positive: Negative Gastrointestinal: Positive: Negative Genitourinary: Positive: Negative Motor: Positive: Negative Neurovascular: Positive: Negative Musculoskeletal: Positive: Negative Neurological: Positive: Negative Psychological: Positive: Negative Is Patient Immunocompromised?: No Physical Exam Triage Information Reviewed: Yes Appearance: Well-Appearing Vital Signs: Initial Vital Signs Temp 98.9 F 03/06/19 14:58 Pulse 87 03/06/19 14:58 Resp 16 03/06/19 14:58 BP 115/79 03/06/19 14:58 Pulse Ox 100 03/06/19 14:58 Vital Signs Reviewed: Yes Eye Exam: Normal ENT Exam: Normal Dental: Positive: Abscess @ - right lower jaw Neck exam: Normal Respiratory Exam: Normal Cardiovascular Exam: Normal Musculoskeletal Exam: Normal Neurological Exam: Normal Psychological Exam: Normal Skin Exam: Normal Dental Complaint Course/Dx - Differential Dx/Diagnosis Differential Diagnosis/Dx: Dental Abscess, Fractured Tooth Provider Diagnosis: Dental abscess Discharge - Sign-Out/Discharge Documenting (check all that apply): Patient Departure All imaging exams completed and their final reports reviewed: No Studies - Discharge Plan Condition: Stable Disposition: HOME Prescriptions: Clindamycin HCl 300 mg PO Q8H #30 capsule Fluconazole 150 MG TAB* [Diflucan 150 MG TAB*] 150 mg PO DAILY #2 tablet Patient Education Materials: Dental Abscess (ED) Referrals: Wilfred Redd MD [Primary Care Provider] - If Needed Additional Instructions: Please follow up with your dental care provider as soon as possible. - Billing Disposition and Condition Condition: STABLE Disposition: Home
== END 2019-03-06 15:28 | disposition home or self-care (01) ==
LOC: UCCORT 13:58
DX: K04.7 Periapical abscess without sinus (principal); Z88.0 Allergy status to penicillin; Z88.1 Allergy status to other antibiotic agents
CPT/HCPCS: 99212; G0463

== ENCOUNTER 2019-08-01 13:02 | Emergency (ER) | payer OTHER ==
--- OUTSIDE RECORDS SUMMARY | 2019-08-01 13:16 | XMS REPORT | Continuity of Care Document ---
:1970 External Reference #:[id number] Author Name Nasir Cortez 2 (transmitted by agent of provider Gela Herr) Address [address] [facility] [address] Care Team Providers Name Role Phone Wilfred Redd MD Care Team Information Youth Services Specialist [phone] Problems Active Problems Provider Date Varicose veins of lower extremity Burt Lennon M.D. Onset: 04/14/2017 Peripheral venous insufficiency Burt Lennon M.D. Onset: 04/14/2017 Swelling of lower limb Burt Lennon M.D. Onset: 04/14/2017 Social History Type Date Description Comments Sex Unknown ETOH Use Rarely consumes alcohol Tobacco Use Start: Unknown Patient has never smoked Smoking Status Reviewed: 07/04/19 Patient has never smoked Allergies, Adverse Reactions, Alerts Active Allergies Reaction Severity Comments Date Penicillin V hives-child 04/14/2017 Keflex rash 04/14/2017 Compazine restless leg 04/14/2017 Latex skin breakdown 04/14/2017 Medications Active Medications SIG Qnty Indications Ordering Provider Date Albuterol Sulfate prn Unknown (2.5mg/3ML) 0.083% Nebulizer Herbal Diuretic Unknown Immunizations Description No Information Available Vital Signs Date Vital Result Comment 07/03/2019 2:22pm Weight 147.00 lb Height 63 inches 5'3" Heart Rate 79 /min Body Temperature 98.0 F BP Systolic 98 mmHg BP Diastolic 54 mmHg BMI (Body Mass Index) 26.0 kg/m2 05/17/2019 10:24am Weight 147.00 lb Height 63 inches 5'3" Heart Rate 75 /min Body Temperature 97.2 F BP Systolic 128 mmHg BP Diastolic 72 mmHg BMI (Body Mass Index) 26.0 kg/m2 Results Description No Information Available Procedures Date Code Description Status 07/05/2019 25043 Duplex Scan Extremity Veins, Unilateral Or Limited Study Completed 07/04/2019 46631 Endovascular Ablation Therapy Completed 07/04/2019 37051 Injection Sclerosing Solution Multiple Veins Same Leg Completed 07/03/2019 36515 Duplex Scan Extremity Veins, Unilateral Or Limited Study Completed 07/03/2019 07250 Duplex Scan Extremity Veins, Unilateral Or Limited Study Completed 06/21/2019 73155 Duplex Scan Extremity Veins, Unilateral Or Limited Study Completed 06/21/2019 00332 Duplex Scan Extremity Veins, Unilateral Or Limited Study Completed 06/20/2019 09212 Endovascular Ablation Therapy Completed 06/20/2019 18223 Injection Sclerosing Solution Multiple Veins Same Leg Completed 06/19/2019 25212 Duplex Scan Extremity Veins, Unilateral Or Limited Study Completed 06/19/2019 23489 Duplex Scan Extremity Veins, Unilateral Or Limited Study Completed 05/17/2019 79681 Duplex Scan Extremity Veins Complete Bilateral Completed Medical Devices Description No Information Available Encounters Type Date Location Provider Dx Diagnosis Office Visit 07/03/[place] [facility] [place] Mary Ann Lennon, I83.893 Varicose veins of bi 2:30p M.D. low extrem w oth complications I87.2 Venous insufficiency (chronic) (peripheral) M79.89 Other specified soft tissue disorders Office Visit 05/17/2019 9:45a [facility] [place] Mary Ann Lennon, I83.813 Varicose veins of M.D. bilateral lower extremities with pain I87.2 Venous insufficiency (chronic) (peripheral) M79.89 Other specified soft tissue disorders Office Visit 04/23/2019 3:30p [facility] [place] Mary Ann Lennon, I83.813 Varicose veins of M.D. bilateral lower extremities with pain I87.2 Venous insufficiency (chronic) (peripheral) M79.89 Other specified soft tissue disorders Assessments Date Code Description Provider 07/05/2019 I83.812 Varicose veins of left lower extremity [place] 2 with pain 07/05/2019 M79.89 Other specified soft tissue disorders Vas [place] 2 07/04/2019 I83.813 Varicose veins of bilateral lower [place] Mary Ann Lennon M.D. extremities with pain 07/04/2019 M79.89 Other specified soft tissue disorders [place] Emelina. [place], M.D. 07/04/2019 I87.2 Venous insufficiency (chronic) Burt Lennon M.D. (peripheral) 07/03/2019 I83.812 Varicose veins of left lower extremity Burt Lennon M.D. with pain 07/03/2019 I83.812 Varicose veins of left lower extremity [place] 1 with pain 07/03/2019 M79.89 Other specified soft tissue disorders Burt Lennon M.D. 07/03/2019 M79.89 Other specified soft tissue disorders [place] 1 07/03/2019 I83.893 Varicose veins of bilateral lower Burt Lennon M.D. extremities with other complications 07/03/2019 I87.2 Venous insufficiency (chronic) Burt Lennon M.D. (peripheral) 07/03/2019 M79.89 Other specified soft tissue disorders Burt Lennon M.D. 06/21/2019 I83.811 Varicose veins of right lower extremity Burt Lennon M.D. with pain 06/21/2019 I83.811 Varicose veins of right lower extremity [place] 1 with pain 06/21/2019 M79.89 Other specified soft tissue disorders Burt Lennon M.D. 06/21/2019 M79.89 Other specified soft tissue disorders [place] 1 06/20/2019 I83.813 Varicose veins of bilateral lower Burt Lennon M.D. extremities with pain 06/20/2019 I87.2 Venous insufficiency (chronic) Burt Lennon M.D. (peripheral) 06/20/2019 M79.89 Other specified soft tissue disorders Burt Lennon M.D. 06/19/2019 Z01.818 Encounter for other preprocedural Burt Lennon M.D. examination 06/19/2019 Z01.818 Encounter for other preprocedural [place] 1 examination 06/19/2019 I83.811 Varicose veins of right lower extremity Burt Lennon M.D. with pain 06/19/2019 I83.811 Varicose veins of right lower extremity [place] 1 with pain 06/19/2019 M79.89 Other specified soft tissue disorders Burt Lennon M.D. 06/19/2019 M79.89 Other specified soft tissue disorders [place] 1 05/17/2019 I83.813 Varicose veins of bilateral lower Burt Lennon M.D. extremities with pain 05/17/2019 I83.813 Varicose veins of bilateral lower [place] 1 extremities with pain 05/17/2019 I87.2 Venous insufficiency (chronic) Burt Lennon M.D. (peripheral) 05/17/2019 I87.2 Venous insufficiency (chronic) Vas [place] 1 (peripheral) 05/17/2019 M79.89 Other specified soft tissue disorders Burt Lennon M.D. 05/17/2019 M79.89 Other specified soft tissue disorders [place] 1 05/17/2019 I83.813 Varicose veins of bilateral lower Burt Lennon M.D. extremities with pain 05/17/2019 I87.2 Venous insufficiency (chronic) Burt Lennon M.D. (peripheral) 05/17/2019 M79.89 Other specified soft tissue disorders Burt Lennon M.D. 04/23/2019 I83.813 Varicose veins of bilateral lower Burt Lennon M.D. extremities with pain 04/23/2019 I87.2 Venous insufficiency (chronic) Burt Lennon M.D. (peripheral) 04/23/2019 M79.89 Other specified soft tissue disorders Burt Lennon M.D. Plan of Treatment Future Appointment(s):07/17/2019 2:15 pm - Burt Lennon M.D. at [facility] [id number] - Burt Lennon M.D.I83.893 Varicose veins of bilateral lower extremities with other complicationsComments:The patient has symptomatic varicose veins bilaterally with clinical evidence of venous valvular reflux and valvular insufficiency. The patient is encouraged to continue to wear the graduated support stockings ordered.. The patient will be scheduled and is planned to have a left leg endovenous occlusion using the ClosureFast operative procedure the small saphenous vein as well as sclerotherapy of symptomatic varicose veins and reticular veins.Follow up:for left leg short saphenous vein ClosureFast Radiofreuency endovenous ablation operative procedure and keohyojwviewjF65.2 Venous insufficiency (chronic) (peripheral)M79.89 Other specified soft tissue disorders Functional Status Description No Information Available Mental Status Description No Information Available Referrals Description No Information Available
--- OUTSIDE RECORDS SUMMARY | 2019-08-01 13:16 | XMS REPORT | Continuity of Care Document ---
:1970 External Reference #:[id number] Author Name Burt Lennon M.D. (transmitted by agent of provider Lyn Shipman) Address [address] [facility] [place] [address] Care Team Providers Name Role Phone Wilfred Redd MD Care Team Information Patient Relations Manager [phone] Problems Active Problems Provider Date Varicose veins of lower extremity Burt Lennon M.D. Onset: 04/14/2017 Peripheral venous insufficiency Burt Lennon M.D. Onset: 04/14/2017 Swelling of lower limb Burt Lennon M.D. Onset: 04/14/2017 Social History Type Date Description Comments Sex Unknown ETOH Use Rarely consumes alcohol Tobacco Use Start: Unknown Patient has never smoked Smoking Status Reviewed: 04/23/19 Patient has never smoked Allergies, Adverse Reactions, [...] Information Available Procedures Date Code Description Status 06/21/2019 82776 Duplex Scan Extremity Veins, Unilateral Or Limited Study Completed 06/21/2019 41340 Duplex Scan Extremity Veins, Unilateral Or Limited Study Completed 06/20/2019 94661 Endovascular Ablation Therapy Completed 06/20/2019 30465 Injection Sclerosing Solution Multiple Veins Same Leg Completed 06/19/2019 82905 Duplex Scan Extremity Veins, Unilateral Or Limited Study Completed 06/19/2019 12664 Duplex Scan Extremity Veins, Unilateral Or Limited Study Completed 05/17/2019 32046 Duplex Scan Extremity Veins Complete Bilateral Completed Medical Devices Description No Information Available Encounters Type Date Location Provider Dx Diagnosis Office Visit 07/03/2019 [facility] [place] Burt Lennon, I83.893 Varicose veins of bi 2:30p M.D. low extrem w oth complications I87.2 Venous insufficiency (chronic) (peripheral) M79.89 Other specified soft tissue disorders Office Visit 05/17/2019 9:45a [facility] [place] Burt Lennon I83.813 Varicose veins of M.D. bilateral lower extremities with pain I87.2 Venous insufficiency (chronic) (peripheral) M79.89 Other specified soft tissue disorders Office Visit 04/23/2019 3:30p [facility] [place] Burt Lennon, I83.813 Varicose veins of M.D. bilateral lower extremities with pain I87.2 Venous insufficiency (chronic) (peripheral) M79.89 Other specified soft tissue disorders Assessments Date Code Description Provider 07/03/2019 I83.893 Varicose veins of bilateral lower [...] I83.813 Varicose veins of bilateral lower [place] 1 extremities with pain 05/17/2019 I87.2 Venous [...] Burt Lennon M.D. Plan of Treatment Future Appointment(s):07/04/2019 2:00 pm - Burt Lennon M.D. at [facility] [id number] 10:30 am - Vas [place] 2 at [facility] [place]uf[place]zd8807/03/2019 - Burt Lennon M.D.I83.893 Varicose veins of bilateral lower extremities with other complicationsFollow up:for left leg short saphenous vein ClosureFast Radiofreuency endovenous ablation operative procedure and bvjcrmyvffkarD63.2 Venous insufficiency (chronic) (peripheral)M79.89 Other specified soft tissue disorders Functional Status Description No Information Available Mental Status Description No Information Available Referrals Description No Information Available
--- OUTSIDE RECORDS SUMMARY | 2019-08-01 13:16 | XMS REPORT | Continuity of Care Document ---
:1970 External Reference #:[id number] Author Name Burt Lennon M.D. (transmitted by agent of provider Lyn Shipman) Address [address] [facility] [place] [address] Care Team Providers Name Role Phone Wilfred Redd MD Care Team Information Manuscript Editor [phone] Problems Active Problems Provider Date Varicose veins [...] Available Procedures Date Code Description Status 06/21/2019 36184 Duplex Scan Extremity Veins, Unilateral Or Limited Study Completed 06/21/2019 40869 Duplex Scan Extremity Veins, Unilateral Or Limited Study Completed 06/20/2019 65493 Endovascular Ablation Therapy Completed 06/20/2019 62143 Injection Sclerosing Solution Multiple Veins Same Leg Completed 06/19/2019 14664 Duplex Scan Extremity Veins, Unilateral Or Limited Study Completed 06/19/2019 09659 Duplex Scan Extremity Veins, Unilateral Or Limited Study Completed 05/17/2019 01648 Duplex Scan Extremity Veins Complete Bilateral Completed Medical Devices Description No Information Available Encounters Type Date Location Provider Dx Diagnosis [place] [facility] [place] I83.893 Varicose veins of bi 2:30p M.D. low extrem w oth complications I87.2 Venous insufficiency (chronic) (peripheral) M79.89 Other specified soft tissue disorders Office Visit 05/17/2019 9:45a [facility] [place]urt Lennon I83.813 Varicose veins of M.D. bilateral lower extremities with pain I87.2 Venous insufficiency (chronic) (peripheral) M79.89 Other specified soft tissue disorders Office Visit 04/23/2019 3:30p [facility] [place] Burt Lennon, I83.813 Varicose veins of M.D. [...] 2:00 pm - [place]urt [place] [facility] [id number] 10:30 am - Vas [place] 2 at [facility] Dfxnnxb5807/03/2019 - Burt Lennon M.D.I83.893 Varicose veins of bilateral lower extremities with other complicationsFollow up:for left leg short saphenous vein ClosureFast Radiofreuency endovenous ablation operative procedure and kunmruqdffbbzC44.2 Venous insufficiency (chronic) (peripheral)M79.89 Other specified soft tissue disorders Functional Status Description No Information Available Mental Status Description No Information Available Referrals Description No Information Available
--- OUTSIDE RECORDS SUMMARY | 2019-08-01 13:16 | XMS REPORT | Continuity of Care Document ---
:1970 External Reference #:[id number] Author Name Hortencia Fields Care Team Providers Name Role Phone Wilfred Redd MD Care Team Information Outbound Telemarketing Representative [phone] Problems Active Problems Provider Date Varicose veins of lower extremity Burt Lennon M.D. Onset: 04/14/2017 Peripheral venous insufficiency Burt Lennon M.D. Onset: 04/14/2017 Swelling of lower limb Burt Lennon M.D. Onset: 04/14/2017 Social History Type Date Description Comments Sex Unknown ETOH Use Rarely consumes alcohol Tobacco Use Start: Unknown Patient has never smoked Smoking Status Reviewed: 07/20/19 Patient has never smoked Allergies, Adverse Reactions, Alerts Active Allergies Reaction Severity Comments Date Penicillin V hives-child 04/14/2017 Keflex rash 04/14/2017 Compazine restless leg 04/14/2017 Latex skin breakdown 04/14/2017 Medications Active Medications SIG Qnty Indications Ordering Provider Date Albuterol Sulfate prn Unknown (2.5mg/3ML) 0.083% Nebulizer Herbal Diuretic Unknown Immunizations Description No Information Available Vital Signs Date Vital Result Comment 07/17/2019 2:28pm Weight 147.00 lb Height 63 inches 5'3" Heart Rate 80 /min Body Temperature 98.2 F BP Systolic 128 mmHg BP Diastolic 70 mmHg BMI (Body Mass Index) 26.0 kg/m2 07/03/2019 2:22pm Weight 147.00 lb Height 63 inches 5'3" Heart Rate 79 /min Body Temperature 98.0 F BP Systolic 98 mmHg BP Diastolic 54 mmHg BMI (Body Mass Index) 26.0 kg/m2 Results Description No Information Available Procedures Date Code Description Status 07/05/2019 22959 Duplex Scan Extremity Veins, Unilateral Or Limited Study Completed 07/05/2019 27346 Duplex Scan Extremity Veins, Unilateral Or Limited Study Completed 07/04/2019 56710 Endovascular Ablation Therapy Completed 07/04/2019 59193 Injection Sclerosing Solution Multiple Veins Same Leg Completed 07/03/2019 62042 Duplex Scan Extremity Veins, Unilateral Or Limited Study Completed 07/03/2019 97935 Duplex Scan Extremity Veins, Unilateral Or Limited Study Completed 06/21/2019 88748 Duplex Scan Extremity Veins, Unilateral Or Limited Study Completed 06/21/2019 04524 Duplex Scan Extremity Veins, Unilateral Or Limited Study Completed 06/20/2019 02117 Endovascular Ablation Therapy Completed 06/20/2019 10378 Injection Sclerosing Solution Multiple Veins Same Leg Completed 06/19/2019 66118 Duplex Scan Extremity Veins, Unilateral Or Limited Study Completed 06/19/2019 78876 Duplex Scan Extremity Veins, Unilateral Or Limited Study Completed 05/17/2019 33632 Duplex Scan Extremity Veins Complete Bilateral Completed Medical Devices Description No Information Available Encounters Type Date Location Provider Dx Diagnosis Office Visit 07/17/2019 Rosanne Lennon, I83.813 Varicose veins of 2:15p M.D. bilateral lower extremities with pain I87.2 Venous insufficiency (chronic) (peripheral) M79.89 Other specified soft tissue disorders Office Visit 07/03/2019 2:30p ROWAN Lennon, I83.893 Varicose veins of bi M.D. low extrem w oth complications I87.2 Venous insufficiency (chronic) (peripheral) M79.89 Other specified soft tissue disorders Office Visit 05/17/2019 9:45a ROWAN Lennon, I83.813 Varicose veins of M.D. bilateral lower extremities with pain I87.2 Venous insufficiency (chronic) (peripheral) M79.89 Other specified soft tissue disorders Office Visit 04/23/2019 3:30p ROWAN Lennon, I83.813 Varicose veins of M.D. bilateral lower extremities with pain I87.2 Venous insufficiency (chronic) (peripheral) M79.89 Other specified soft tissue disorders Assessments Date Code Description Provider 07/17/2019 I83.813 Varicose veins of bilateral lower [place] Mary Ann Lennon M.D. extremities with pain 07/17/2019 I87.2 Venous insufficiency (chronic) Burt Lennon M.D. (peripheral) 07/17/2019 M79.89 Other specified soft tissue disorders Burt Lennon M.D. 07/05/2019 I83.812 Varicose veins of left lower extremity Burt Lennon M.D. with pain 07/05/2019 I83.812 Varicose veins of left lower extremity Vas [place] 2 with pain 07/05/2019 M79.89 Other specified soft tissue disorders Burt Lennon M.D. 07/05/2019 M79.89 Other specified soft tissue disorders Vas [place] 2 07/04/2019 I83.813 Varicose veins of bilateral lower Burt Lennon M.D. extremities with pain 07/04/2019 M79.89 Other specified soft tissue disorders Burt Lennon M.D. 07/04/2019 I87.2 Venous insufficiency (chronic) Burt [...] Burt Lennon M.D. Plan of Treatment Future Appointment(s):01/30/2020 10:30 am - [place] 2 at [facility] [id number] 11:30 am - Burt Lennon M.D. at [facility] [place]/2019 - Burt Lennon M.D.I83.813 Varicose veins of bilateral lower extremities with painNew Xrays: Bilateral Venous Scan, Ordered: 07/17/19Comments:The patient has symptomatic varicose veins bilaterally with clinical evidence of venous valvular reflux and valvular insufficiency. The patient is encouraged to continue to wear the graduated support stockings ordered, continue with elevation and avoidance of trauma. The patient has no new issues at this time, will follow-up with the primary care provider and return to office as planned.Follow up:follow up in [address] Burt Lennon at the patient's iijghumL69.2 Venous insufficiency (chronic) (peripheral)M79.89 Other specified soft tissue disorders Functional Status Description No Information Available Mental Status Description No Information Available Referrals Description No Information Available
--- OUTSIDE RECORDS SUMMARY | 2019-08-01 13:16 | XMS REPORT | Continuity of Care Document ---
:1970 External Reference #:[id number] Author Name Burt Lennon M.D. Address [address] [facility] [address] Care Team Providers Name Role Phone Wilfred Redd MD Care Team Information Insurance Agency Sales Manager [phone] Problems Active Problems Provider Date Varicose veins [...] Available Procedures Date Code Description Status 07/05/2019 20361 Duplex Scan Extremity Veins, Unilateral Or Limited Study Completed 07/05/2019 25049 Duplex Scan Extremity Veins, Unilateral Or Limited Study Completed 07/04/2019 25536 Endovascular Ablation Therapy Completed 07/04/2019 77422 Injection Sclerosing Solution Multiple Veins Same Leg Completed 07/03/2019 02589 Duplex Scan Extremity Veins, Unilateral Or Limited Study Completed 07/03/2019 81754 Duplex Scan Extremity Veins, Unilateral Or Limited Study Completed 06/21/2019 00150 Duplex Scan Extremity Veins, Unilateral Or Limited Study Completed 06/21/2019 43069 Duplex Scan Extremity Veins, Unilateral Or Limited Study Completed 06/20/2019 56245 Endovascular Ablation Therapy Completed 06/20/2019 53964 Injection Sclerosing Solution Multiple Veins Same Leg Completed 06/19/2019 39216 Duplex Scan Extremity Veins, Unilateral Or Limited Study Completed 06/19/2019 63956 Duplex Scan Extremity Veins, Unilateral Or Limited Study Completed 05/17/2019 72105 Duplex Scan Extremity Veins Complete Bilateral Completed Medical Devices Description No Information Available Encounters Type Date Location Provider Dx Diagnosis Office Visit 07/17/2019 [facility] ONeto Lennon, I83.813 Varicose veins of 2:15p M.D. bilateral lower extremities with pain I87.2 Venous insufficiency (chronic) (peripheral) M79.89 Other specified soft tissue disorders Office Visit 07/03/2019 2:30p [facility] Mary Ann Lennon, I83.893 Varicose veins of bi M.D. low extrem w oth complications I87.2 Venous insufficiency (chronic) (peripheral) M79.89 Other specified soft tissue disorders Office Visit 05/17/2019 9:45a [facility] ONeto Lennon, I83.813 Varicose veins of M.D. bilateral lower extremities with pain I87.2 Venous insufficiency (chronic) (peripheral) M79.89 Other specified soft tissue disorders Office Visit 04/23/2019 3:30p [facility] ONeto Lennon, I83.813 Varicose veins of M.D. bilateral lower extremities with pain I87.2 Venous insufficiency (chronic) (peripheral) M79.89 Other specified soft tissue disorders Assessments Date Code Description Provider 07/17/2019 I83.813 Varicose veins of bilateral lower Burt Lennon M.D. extremities with pain 07/17/2019 I87.2 [...] complications 07/03/2019 I87.2 Venous insufficiency (chronic) Burt eLnnon M.D. (peripheral) 07/03/2019 M79.89 Other specified soft [...] of Treatment Future Appointment(s):01/30/2020 10:30 am - [facility] [id number] 11:30 am - [place] M[facility] [place] [facility] [place] Burt Lennon M.D.I83.813 Varicose veins of [...] with Dr. Burt Lennon at the patient's [id number] Venous insufficiency (chronic) (peripheral)M79.89 Other specified soft tissue disorders Functional Status Description No Information Available Mental Status Description No Information Available Referrals Description No Information Available
--- OUTSIDE RECORDS SUMMARY | 2019-08-01 13:16 | XMS REPORT | Continuity of Care Document ---
:1970 External Reference #:[id number] Author Name Burt Lennon M.D. 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 Problems Active Problems Provider Date Varicose veins [...] Information Available Procedures Date Code Description Status 07/03/2019 39404 Duplex Scan Extremity Veins, Unilateral Or Limited Study Completed 06/21/2019 87010 Duplex Scan Extremity Veins, Unilateral Or Limited Study Completed 06/21/2019 89516 Duplex Scan Extremity Veins, Unilateral Or Limited Study Completed 06/20/2019 26459 Endovascular Ablation Therapy Completed 06/20/2019 83435 Injection Sclerosing Solution Multiple Veins Same Leg Completed 06/19/2019 61153 Duplex Scan Extremity Veins, Unilateral Or Limited Study Completed 06/19/2019 83455 Duplex Scan Extremity Veins, Unilateral Or Limited Study Completed 05/17/2019 34169 Duplex Scan Extremity Veins Complete Bilateral Completed Medical Devices Description No Information Available Encounters Type Date Location Provider Dx Diagnosis Office Visit 07/03/2019 [facility] [place] Burt Lennon, I83.893 Varicose veins of bi 2:30p M.D. low extrem w oth complications I87.2 Venous insufficiency (chronic) (peripheral) M79.89 Other specified soft tissue disorders Office Visit 05/17/2019 9:45a [facility] [place] Burt Lennon, I83.813 Varicose veins of M.D. bilateral lower extremities with pain I87.2 Venous insufficiency (chronic) (peripheral) M79.89 Other specified soft tissue disorders Office Visit 04/23/2019 3:30p [facility] [place] Burt Lennon, I83.813 Varicose veins of M.D. bilateral lower extremities with pain I87.2 Venous insufficiency (chronic) (peripheral) M79.89 Other specified soft tissue disorders Assessments Date Code Description Provider 07/03/2019 I83.812 Varicose veins of left lower [...] 05/17/2019 I83.813 Varicose veins of bilateral lower uBrt Lennon M.D. extremities with pain 05/17/2019 I83.813 [...] Burt Lennon M.D. Plan of Treatment Future Appointment(s):07/05/2019 10:30 am - [facility] at [facility] [id number] - Burt Lennon M.D.I83.893 Varicose veins of [...] ClosureFast Radiofreuency endovenous ablation operative procedure and [id number] Venous insufficiency (chronic) (peripheral)M79.89 Other specified soft tissue disorders Functional Status Description No Information Available Mental Status Description No Information Available Referrals Description No Information Available
--- OUTSIDE RECORDS SUMMARY | 2019-08-01 13:16 | XMS REPORT | Continuity of Care Document ---
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 Problems Active Problems Provider Date Varicose veins [...] Available Procedures Date Code Description Status 07/05/2019 79999 Duplex Scan Extremity Veins, Unilateral Or Limited Study Completed 07/05/2019 41366 Duplex Scan Extremity Veins, Unilateral Or Limited Study Completed 07/04/2019 52100 Endovascular Ablation Therapy Completed 07/04/2019 57151 Injection Sclerosing Solution Multiple Veins Same Leg Completed 07/03/2019 89099 Duplex Scan Extremity Veins, Unilateral Or Limited Study Completed 07/03/2019 73063 Duplex Scan Extremity Veins, Unilateral Or Limited Study Completed 06/21/2019 06395 Duplex Scan Extremity Veins, Unilateral Or Limited Study Completed 06/21/2019 66297 Duplex Scan Extremity Veins, Unilateral Or Limited Study Completed 06/20/2019 45348 Endovascular Ablation Therapy Completed 06/20/2019 33583 Injection Sclerosing Solution Multiple Veins Same Leg Completed 06/19/2019 59908 Duplex Scan Extremity Veins, Unilateral Or Limited Study Completed 06/19/2019 99751 Duplex Scan Extremity Veins, Unilateral Or Limited Study Completed 05/17/2019 23816 Duplex Scan Extremity Veins Complete Bilateral Completed Medical Devices Description No Information Available Encounters Type Date Location Provider Dx Diagnosis Office Visit 07/03/[address] [facility] [place] Burt Lennon, I83.893 Varicose veins of bi 2:30p [place] low extrem w oth complications I87.2 Venous insufficiency (chronic) (peripheral) M79.89 Other specified soft tissue disorders Office Visit 05/17/2019 9:45a [facility] [place] Burt Lennon, I83.813 Varicose veins of M.D. bilateral lower extremities with pain I87.2 Venous insufficiency (chronic) (peripheral) M79.89 Other specified soft tissue disorders Office Visit 04/23/2019 3:30p [facility] [place] Burt Lennon, I83.813 Varicose veins of M.D. bilateral lower extremities with pain I87.2 Venous insufficiency (chronic) (peripheral) M79.89 Other specified soft tissue disorders Assessments Date Code Description Provider 07/05/2019 I83.812 Varicose veins of left lower extremity Burt Lennon M.D. with pain 07/05/2019 I83.812 Varicose veins of left lower extremity [facility] 2 with pain 07/05/2019 M79.89 Other specified soft tissue disorders Burt Lnenon M.D. 07/05/2019 M79.89 Other specified soft tissue [...] other complications 07/03/2019 I87.2 Venous insufficiency (chronic) Butr Lennon M.D. (peripheral) 07/03/2019 M79.89 Other specified soft tissue disorders Burt Lennon M.D. 06/21/2019 I83.811 Varicose veins of right lower extremity Brut Lennon M.D. with pain 06/21/2019 I83.811 Varicose [...] 2:15 pm - Burt Lennon M.D. at [facility] [place] Functional Status Description No Information Available Mental Status Description No Information Available Referrals Description No Information Available
[2019-08-01 13:37] VITALS: BP 111/69
--- NOTE | 2019-08-01 14:07 | ED ---
Abdominal Pain/Female - HPI Summary HPI Summary: 49 yr old female with the complaint of left upper quadrant pain; onset two days ago, brief and went away. Today at 830 am she had sudden onset of pain in the left upper quadrant of the abdomen, her pain was disabling and it bent her over , 10/10, she had to end her water aerobics class early. She had pain that was 8 /10. No NVD. No SOB, but she says that the pain is worse with deep breath. - History of Current Complaint Chief Complaint: UCGI Stated Complaint: ABD PAIN Time Seen by Provider: 08/01/19 13:27 Hx Last Menstrual Period: 07/04/19 Pain Intensity: 3 Allergies/Adverse Reactions: Allergies Allergy/AdvReac Type Severity Reaction Status Date / Time cephalexin [From Keflex] Allergy Hives Verified 08/01/19 13:37 latex Allergy Rash Verified 08/01/19 13:37 mold Allergy Anaphylatic Verified 08/01/19 13:37 Shock mushroom Allergy Anaphylatic Verified 08/01/19 13:37 Shock Penicillins Allergy Hives Verified 08/01/19 13:37 prochlorperazine Allergy RLS Verified 08/01/19 13:37 [From Compazine] Home Medications: Home Medications Calcium Carbonate CHEW TAB* [Tums*] 1,000 mg PO BID 08/01/19 [History Confirmed 08/01/19] Calcium Carbonate CHEW TAB* [Tums*] 1,500 mg PO ONCE PRN 08/01/19 [History Confirmed 08/01/19] PMH/Surg Hx/FS Hx/Imm Hx Previously Healthy: No - factor V lieden Endocrine/Hematology History: Denies: Hx Diabetes, Hx Thyroid Disease Cardiovascular History: Denies: Hx Hypertension Respiratory History: Reports: Hx Asthma Denies: Hx Chronic Obstructive Pulmonary Disease (COPD) GI History: Reports: Hx Ulcer - gastric age 11 - Surgical History Surgery Procedure, Year, and Place: , 2007. 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, Hx Shingles Denies: Hx Clostridium Difficile, Hx Hepatitis, Hx Human Immunodeficiency Virus (HIV), Hx Tuberculosis, Hx Known/Suspected VRE, Hx Known/Suspected VRSA, History Other Infectious Disease, Traveled Outside the [place] in Last 30 Days - Family History Known Family History: Positive: Cardiac Disease, Hypertension, Diabetes, Other - dad MS, moom LUPUS - Social History Occupation: Employed Full-time Alcohol Use: Occasionally Substance Use Type: Reports: None Smoking Status (MU): Never Smoked Tobacco Have You Smoked in the Last Year: No Review of Systems Constitutional: Negative Positive: Other - pain in left upper abdomen All Other Systems Reviewed And Are Negative: Yes Physical Exam Triage Information Reviewed: Yes Vital Signs On Initial Exam: Initial Vitals Temp Pulse Resp BP Pulse Ox 98.6 F 81 20 111/69 100 08/01/19 13:17 08/01/19 13:08/01/19 13:08/01/19 13:08/01/19 13:17 Vital Signs Reviewed: Yes Appearance: Positive: Well-Appearing, No Pain Distress Skin: Positive: Warm, Skin Color Reflects Adequate Perfusion Head/Face: Positive: Normal Head/Face Inspection Eyes: Positive: EOMI ENT: Positive: Normal ENT inspection Neck: Positive: Nontender Respiratory/Lung Sounds: Positive: Clear to Auscultation, Breath Sounds Present Cardiovascular: Positive: RRR. Negative: Murmur Abdomen Description: Positive: Other: - slight tenderness left upper quadrant. Negative: Distended Musculoskeletal: Positive: Edema Left - trace, Edema Right - trace Neurological: Positive: Sensory/Motor Intact, Alert, Oriented to Person Place, Time, CN Intact II-III, Normal Gait, Speech Normal Psychiatric: Positive: Normal Diagnostics - Vital Signs Vital Signs Temp Pulse Resp BP Pulse Ox 08/01/19 13:17 98.6 F 81 20 111/69 100 - Laboratory Lab Statement: Any lab studies that have been ordered have been reviewed, and results considered in the medical decision making process. Abdominal Pain Fem Course/Dx - Course Course Of Treatment: 49 yr old female with left upper quadrant pain, pleuritic pain as well. I have recommended an ambulance to the ER for further work up. She signed out AMA. - Diagnoses Provider Diagnoses: Left upper quadrant abdominal pain of unknown etiology, Pleuritic pain Discharge ED - Sign-Out/Discharge Documenting (check all that apply): Patient Departure All imaging exams completed and their final reports reviewed: No Studies - Discharge Plan Condition: Good Disposition: AGAINST MEDICAL ADVICE Referrals: Wilfred Redd MD [Primary Care Provider] - - Billing Disposition and Condition Condition: GOOD Disposition: Against Medical Advice
== END 2019-08-01 13:59 | disposition left against medical advice (07) ==
LOC: UCCORT 13:02
DX: R10.12 Left upper quadrant pain (principal); R07.81 Pleurodynia; R60.0 Localized edema; Z88.1 Allergy status to other antibiotic agents; Z91.040 Latex allergy status; Z88.0 Allergy status to penicillin; Z88.8 Allergy status to other drugs, medicaments and biological substances; Z91.018 Allergy to other foods; Z91.048 Other nonmedicinal substance allergy status
CPT/HCPCS: 99212; G0463

== ENCOUNTER 2020-01-23 13:59 | Emergency (ER) | payer OTHER ==
[2020-01-23 17:13] VITALS: BP 121/73
--- NOTE | 2020-01-23 17:25 | UC ---
FLU HPI - HPI Summary HPI Summary: 49 yo with hx of asthma, who began Tamiflu on 01/19 due to exposure to flu. Called MD when she developed a fever and increased dose to BID. Continues to have fever and shortness of breath, using albuterol 4 times per day. Cough with occasional vomiting. In past, has used both oral steroids and ICS for treatment. her MD advised her to come here for CXR. Currently has 100% O2 sat, good air entry and is not tachypneic. - History of Current Complaint Chief Complaint: UCRespiratory Stated Complaint: CHEST CONGESTION Time Seen by Provider: 01/23/20 17:15 Hx Obtained From: Patient Hx Last Menstrual Period: no menses 3 months Onset/Duration: Gradual Onset, Lasting Days Severity Currently: Mild Pain Intensity: 2 Associated Signs & Symptoms: Positive: Fever, Myalgia, Cough, Sore Throat, Nasal Congestion, Vomiting Related Hx: Possible Flu/Infectious Exposure - Risk Factors Influenza Risk Factors: Chronic Medical or Immunosuppresive Condition - Allergy/Home Medications Allergies/Adverse Reactions: Allergies Allergy/AdvReac Type Severity Reaction Status Date / Time cephalexin [From Keflex] Allergy Hives Verified 01/23/20 17:07 latex Allergy Rash Verified 01/23/20 17:07 mold Allergy Anaphylatic Verified 01/23/20 17:07 Shock mushroom Allergy Anaphylatic Verified 01/23/20 17:07 Shock Penicillins Allergy Hives Verified 01/23/20 17:07 prochlorperazine Allergy RLS Verified 01/23/20 17:07 [From Compazine] Home Medications: Home Medications Loratadine [Claritin 10 MG CAP] 10 mg PO DAILY PRN 01/25/19 [History Confirmed 01/23/20] predniSONE [Prednisone 20 MG TAB] 40 mg PO DAILY #10 tablet 01/23/20 [Rx] PMH/Surg Hx/FS Hx/Imm Hx Respiratory History: Asthma - Surgical History Surgical History: Yes Surgery Procedure, Year, and Place: , 2007. Appendectomy 2016; R/L large saphenous vein surgery 2016; right vein surgery 06/20/19 closure fast,small saphenous and sclerotherapy, then left 07/04/19- 2 recheck WNL week; - Family History Known Family History: Positive: Cardiac Disease, Hypertension, Diabetes, Other - dad MS, moom LUPUS - Social History Occupation: Employed Full-time Lives: With Family Alcohol Use: Occasionally Substance Use Type: None Smoking Status (MU): Never Smoked Tobacco Have You Smoked in the Last Year: No - Immunization History Most Recent Influenza Vaccination: Not the Season Most Recent Tetanus Shot: UTD Vaccination Up to Date: Yes Review of Systems All Other Systems Reviewed And Are Negative: Yes Constitutional: Positive: Fever, Fatigue Skin: Positive: Negative Eyes: Positive: Negative ENT: Positive: Sore Throat Respiratory: Positive: Shortness Of Breath, Cough Cardiovascular: Positive: Negative Gastrointestinal: Positive: Vomiting Genitourinary: Positive: Negative Motor: Positive: Negative Neurovascular: Positive: Negative Musculoskeletal: Positive: Negative Neurological/Mental Status: Positive: Negative Psychological: Positive: Negative Is Patient Immunocompromised?: No Physical Exam Triage Information Reviewed: Yes Appearance: Ill-Appearing - looks mildly unwell Vital Signs: Initial Vital Signs Temp 99.4 F 01/23/20 17:08 Pulse 88 01/23/20 17:08 Resp 16 01/23/20 17:08 BP 121/73 01/23/20 17:08 Pulse Ox 100 01/23/20 17:08 Eye Exam: Normal ENT: Positive: Pharyngeal erythema, TMs normal Neck: Positive: Supple, Nontender, No Lymphadenopathy Respiratory: Positive: Lungs clear, Normal breath sounds, No respiratory distress Cardiovascular: Positive: RRR, No Murmur Abdomen Description: Positive: Nontender, No Organomegaly, Soft Musculoskeletal Exam: Normal Neurological Exam: Normal Psychological Exam: Normal Skin Exam: Normal Flu Course/Dx - Course Course Of Treatment: complete course of Tamiflu, add prednisone. No indication for CXR. - Differential Dx/Diagnosis Differential Diagnosis/HQI/PQRI: Influenza, Pneumonia, Upper Respiratory Infection Provider Diagnosis: Influenza Discharge ED - Sign-Out/Discharge Documenting (check all that apply): Patient Departure All imaging exams completed and their final reports reviewed: No Studies - Discharge Plan Condition: Stable Disposition: HOME Prescriptions: predniSONE [Prednisone 20 MG TAB] 40 mg PO DAILY #10 tablet Patient Education Materials: Influenza (ED) Forms: *Work Release Referrals: Wilfred Redd MD [Primary Care Provider] - Additional Instructions: Complete the course of Tamiflu. Increase rest and fluids. Off work until you are fever free for 24 hours. Follow up if you have increasing chest pain or increased heart rate, breathing rate. - Billing Disposition and Condition Condition: STABLE Disposition: Home
== END 2020-01-23 17:39 | disposition home or self-care (01) ==
LOC: UCCORT 13:59
DX: J11.1 Influenza due to unidentified influenza virus with other respiratory manifestations (principal); J45.909 Unspecified asthma, uncomplicated; R05 Cough; R11.10 Vomiting, unspecified; Z91.040 Latex allergy status; Z91.09 Other allergy status, other than to drugs and biological substances; Z88.1 Allergy status to other antibiotic agents; Z88.0 Allergy status to penicillin; Z88.8 Allergy status to other drugs, medicaments and biological substances; Z79.52 Long term (current) use of systemic steroids
CPT/HCPCS: 99212; G0463